=== PATIENT | male | born 1940 | race Caucasian/White ===

== ENCOUNTER 2022-08-21 13:09 | Outpatient (CLI) | payer MEDICARE, SELFPAY ==
[2022-08-21 21:45] LABS: Albumin* 4.3 g/dL (3.3-5.0); Chloride* 101 mmol/L (96-114); Sodium* 138 mmol/L (135-149)
[2022-08-21 21:47] LABS: Cholesterol* 175 mg/dL (90-199)
[2022-08-21 21:48] LABS: Alanine Aminotransferase* 13 U/L (4-50); Alkaline Phosphatase* 62 U/L (40-150); Aspartate Amino Transferase* 25 U/L (12-35); Bilirubin Total* 1.5 mg/dL (0.1-1.5); Blood Urea Nitrogen* 27 mg/dL (7-30); Carbon Dioxide* 30 mmol/L (20-32); Creatinine* 1.3 mg/dL (0.5-1.5); Estimated Glomerular Filt Rate 55 ml/min; Glucose* 102 mg/dL (60-115); HDL Cholesterol* 84 mg/dL (>=40); LDL Cholesterol Calculated 65 mg/dL (<100); Total Protein* 6.3 g/dL (6.0-8.3); Triglycerides* 130 mg/dL (40-149)
[2022-08-21 22:18] LABS: PSA Screen* 1.02 ng/mL (0.10-4.00)
== END 2022-08-21 13:10 | disposition home or self-care (01) ==
PROVIDERS: PCP Physician Assistant Medical; Visit Provider Physician Assistant Medical
DX: Z00.00 Encounter for general adult medical examination without abnormal findings (principal); E78.5 Hyperlipidemia, unspecified; I10 Essential (primary) hypertension; J44.9 Chronic obstructive pulmonary disease, unspecified; K52.9 Noninfective gastroenteritis and colitis, unspecified; Z12.5 Encounter for screening for malignant neoplasm of prostate
CPT/HCPCS: 80053; 80061; 84153

== ENCOUNTER 2023-08-28 21:45 | Outpatient (REF) | payer MEDICARE, SELFPAY ==
[2023-08-28 22:38] LABS: Chloride* 102 mmol/L (96-114)
[2023-08-28 22:39] LABS: Sodium* 139 mmol/L (135-149)
[2023-08-28 22:41] LABS: Estimated Glomerular Filt Rate 75 ml/min
[2023-08-28 22:42] LABS: Anion Gap 9 mEq/L (7-15); Blood Urea Nitrogen* 22 mg/dL (7-30); Calcium* 10.1 mg/dL (8.4-10.6); Carbon Dioxide* 28 mmol/L (20-32); Glucose* 96 mg/dL (60-115)
== END 2023-08-28 21:46 | disposition home or self-care (01) ==
LOC: NPINS 21:45
PROVIDERS: PCP Physician Assistant Medical
DX: I10 Essential (primary) hypertension (principal); E78.5 Hyperlipidemia, unspecified
CPT/HCPCS: 80048

== ENCOUNTER 2024-02-20 08:18 | Outpatient (CLI) | payer MEDICARE, SELFPAY | END 2024-02-20 08:19 | disposition home or self-care (01) | LOC: NFLDREF 02-21 07:28 | PROVIDERS: PCP Physician Assistant Medical; Referring Provider Physician Assistant Medical; Visit Provider Physician Assistant Medical | DX: E78.2 Mixed hyperlipidemia (principal) | CPT/HCPCS: 80061; 84450; 84460 ==

== ENCOUNTER 2024-03-25 14:06 | Emergency (ER) | payer MEDICARE, SELFPAY ==
[2024-03-25] VITALS (16 sets, daily range): BP systolic 148–173; BP diastolic 65–85; PULSE 64–80; RESP 36; TEMP 36.4; O2SAT 96–99; BMI 22.8
[2024-03-25] MEDS: RACEPINEPHRINE HCL 0.5 ML VIAL.NEB NEB (14:13)
--- NOTE | 2024-03-25 14:14 | XR_ITS ---
Patient: ALYSHA REGALADO Facility:?[facility] Patient ID:?[id number] Site Patient ID:?[id number]. Site :?[id number] Study:?XRay-Chest Portable-03/25/2024 2:41:36 PM Ordering Physician:?Fawad Singh Final Report: INDICATION: Concern of aspiration, tracheal foreign body? TECHNIQUE: Chest 1 views. COMPARISON: Chest x-ray January 11, 2020. FINDINGS: Cardiovascular and mediastinum: Heart size and vasculature are normal in caliber and appearance. Lungs and pleural spaces: Hyperinflated lungs and findings of COPD again noted. Right greater than left apical scarring again noted. No evidence of radiopaque foreign body. No sign of pleural effusion. No pneumothorax. Bones and soft tissues: Degenerative changes of the shoulders. IMPRESSION: No discrete evidence of radiopaque foreign body as clinically queried. Dictated by Kyaw Adler MD @ 03/25/2024 3:08:05 PM Signed by:?Kyaw Adler MD @03/25/2024 3:08:05 PM (Electronic Signature)
--- NOTE | 2024-03-25 14:17 | ED_ITS ---
HPI - General Adult General Chief complaint: Skin/Abscess/Foreign Body Stated complaint: Difficulty swallowing Time Seen by Provider: 03/25/24 14:14 History of Present Illness HPI narrative: pt was eating raw carrots and thinks he has part of them stuck in his airway. states it is better than it was. 83-year-old man presenting to the emergency department via EMS with concern of difficulty breathing. Notes a history of getting carrots hung up in his throat. Was eating carrots about 2 hours and 15 minutes ago when when some appeared to be lodged. He notes he has coughed up a lot of small pieces. Tried swallowing water and this came right back up. Has continued to have difficulty breathing and just thought he should finally get some help. Notes a history of cardiac valvular disease and needing I believe aortic valve replacement. EMS notes they were unable to visualize anything in the oropharynx or into the throat as far as they could see. Related Data Home Medications Medication Instructions Recorded Confirmed multivitamin with iron (Daily 1 tab PO QDAY 08/21/22 10/15/23 Multiple Vitamins with Iron tablet) vit C 250 mg-vit E 90 mg-zinc 40 1 tab PO BID 08/21/22 08/28/23 mg-copper 1 [id number] capsule (PreserVision AREDS-2) budesonide 3 mg 3 mg PO TID 10/30/22 10/15/23 capsule,delayed,extended release chlorthalidone 25 mg tablet 12.5 mg PO QAM 08/28/23 10/15/23 cholecalciferol (vitamin D3) 125 125 mcg PO QDAY 08/28/23 10/15/23 mcg (5,000 unit) capsule prednisone 10 mg tablet 10 mg PO DIRECTED PRN 08/28/23 10/15/23 dorzolamide 22.3 mg-timolol 6.8 ophthalmic (eye) 10/15/23 10/15/23 mg/mL eye drops Previous Rx's Medication Instructions Recorded albuterol sulfate 90 mcg/actuation 2 inh inhalation Q6-8H PRN 08/21/22 aerosol inhaler shortness of breath or wheezing #8.5 grams diltiazem HCl 180 mg 180 mg PO DAILY #90 caps 02/07/23 capsule,extended release 24 hr alprazolam 0.25 mg tablet 0.25 mg PO QDAY PRN anxiety #15 10/15/23 tabs ipratropium 0.5 mg-albuterol 3 mg 3 ml inhalation QID PRN shortness 02/19/24 (2.5 mg base)/3 mL nebulization of breath or wheezing #180 mL soln rosuvastatin 10 mg tablet 10 mg PO .Bedtime #90 tabs 02/24/24 apixaban 5 mg tablet 5 mg PO BID #180 tabs 03/06/24 beclomethasone dipropionate 40 2 inh PO BID #10.6 grams 03/19/24 mcg/actuation HFA breath activated aerosol (Qvar RediHaler) tadalafil 2.5 mg tablet 2.5 mg PO DAILY #90 tabs 03/19/24 umeclidinium 62.5 mcg/actuation 1 inh inhalation DAILY #30 ea 03/19/24 blister powder for inhalation valsartan 160 mg tablet 160 mg PO QDAY #90 tabs 03/19/24 Allergies Allergy/AdvReac Type Severity Reaction Status Date / Time doxazosin Allergy Unknown Dizziness Verified 10/15/23 11:28 Review of Systems Status of ROS: Reports: 6 or more systems reviewed and unremarkable except as noted in History and below [facility] Medical History Abdominal pain ?R10.9 - Unspecified abdominal pain (ICD-10) Small bowel obstruction ?K56.609 - Unspecified intestinal obstruction, unspecified as to partial versus complete obstruction (ICD-10) Intestinal obstruction ?K56.609 - Unspecified intestinal obstruction, unspecified as to partial versus complete obstruction (ICD-10) History of alcohol abuse ?F10.11 - Alcohol abuse, in remission (ICD-10) Surgical History History of colonoscopy ?Z98.890 - Other specified postprocedural states (ICD-10) History of radiofrequency ablation (RFA) procedure for cardiac arrhythmia ?Z98.890 - Other specified postprocedural states (ICD-10) History of endarterectomy ?Z98.890 - Other specified postprocedural states (ICD-10) History of bilateral cataract extraction ?Z98.41 - Cataract extraction status, right eye (ICD-10) ?Z98.42 - Cataract extraction status, left eye (ICD-10) Family History Unknown High blood pressure Social History Narrative: alcohol abuse, former smoker quite in 1989, What is your current living situation?: I presently have a place to live Problems where you live: no known problems In the past 12 months, utilities in danger of being shut off: no In past 12 months, lack of transportation kept you from medical appts, meetings, work, or getting things needed for daily living: no In the past 12 mos, have been you worried that your food would run out before you had money to buy more?: never true In the past 12 mos, the food you bought just didn't last and you didn't have money to buy more?: never true Smoking Status: Never smoker Do you use any of these nicotine containing products: None Second hand tobacco smoke exposure: No How often do you have a drink containing alcohol: never AUDIT-C Alcohol total score: 0 Non-prescribed substance use: denies use How often does anyone, including family, friends and others, physically hurt you : never How often does anyone, including family, friends and others, insult or talk down to you: never How often does anyone, including family, friends and others, threaten you with harm: never How often does anyone, including family, friends and others, scream or curse at you: never Little interest or pleasure in doing things: several days Feeling down, depressed, or hopeless: several days Exam Narrative: Exam Narrative: Arise with oxygen in place with Oxymizer. But setting 96-98% on room air. Significant stridor is audible. He is tachypneic and labored in breathing. Stridorous breath sounds, harsh transmitted throughout chest. Heart is in regular rate and rhythm. I can not discern any murmur though for the noise of stridor. Oropharynx is difficult to examine as he has difficulty lowering his tongue. Seems quite prone to gagging. Limited visibility. Thankfully, curiously, in answering questions able to carry on conversation without being particularly tachypneic and stridor fades dramatically. Speaking in full sentences. Then returns to stridorous breathing. Const: Vital Signs, click to edit/add: Vital Signs - 24 hr 03/25/24 14:13 03/25/24 14:16 Temperature 97.5 F L Pulse Rate [Pulse Oximeter] 79 Respiratory Rate 36 H Blood Pressure [Ri ght Upper Arm] 173/85 H Pulse Oximetry 98 99 Oxygen Delivery Me thod Room Air Documenting provider has reviewed patient's vital signs: yes Course Vital Signs Vital signs: Initial Vital Signs Temperature 97.5 F L 03/25/24 14:13 Temperature Source Temporal Artery Scan 03/25/24 14:13 Pulse Rate 77 03/25/24 14:13 Respiratory Rate 36 H 03/25/24 14:13 Blood Pressure 173/85 H 03/25/24 14:13 Blood Pressure Mean 114 H 03/25/24 14:13 Pulse Oximetry 98 03/25/24 14:13 Oxygen Delivery Method Room Air 03/25/24 14:13 Vital Signs Temperature 97.5 F L 03/25/24 14:13 Pulse Rate 77 03/25/24 14:13 Respiratory Rate 36 H 03/25/24 14:13 Blood Pressure 173/85 H 03/25/24 14:13 Pulse Oximetry 98 03/25/24 14:13 Oxygen Delivery Method Room Air 03/25/24 14:13 Temperature 97.5 F L 03/25/24 14:13 Pulse Rate 78 03/25/24 15:32 Respiratory Rate 36 H 03/25/24 14:13 Blood Pressure 148/72 H 03/25/24 15:32 Pulse Oximetry 97 03/25/24 15:32 Oxygen Delivery Method Room Air 03/25/24 14:13 Medications Administered Medications: Discontinued Medications Generic Name Dose Route Start Last Admin Trade Name Freq PRN Reason Stop Dose Admin Epinephrine 0.5 ml 03/25/24 14:14 03/25/24 14:13 Racepinephrine Hcl 0.5 Ml Vial.Neb NEB 03/25/24 14:15 0.5 ml ONCE ONE Administration Lorazepam 0.3 mg 03/25/24 14:15 03/25/24 14:23 Lorazepam 2 Mg/Ml Inj IVP 03/25/24 14:16 0.3 mg ONCE ONE Administration Medical Decision Making MDM Narrative Medical decision making narrative: There is an underlying history of anxiety I think this might be contributing. I would think some degree of residual laryngospasm. As we continue to converse he does say that he thinks it might be getting little better. I would like to give some racemic epinephrine and small dose of IV Ativan and reassess. Continue to monitor on oximetry. As he is oxygenating okay and with normal mentation I do not want intubate. I am not convinced there is something to remove. I do think that he is actually improving. The distractibility/change in stridor I think also is indication not to intervene otherwise Would be prudent to x-ray though looking for perhaps pneumothorax, pneumomediastinum or other indication of aspiration though I think it would probably be too early to see anything in this regard. We are assisted here by respiratory Chest x-ray reviewed by me is without evidence of acute abnormality. Radiology over-read as below Study:?XRay-Chest Portable-03/25/2024 2:41:36 PM Ordering Physician:?Fawad Singh Final Report: INDICATION: Concern of aspiration, tracheal foreign body? TECHNIQUE: Chest 1 views. COMPARISON: Chest x-ray January 11, 2020. FINDINGS: Cardiovascular and mediastinum: Heart size and vasculature are normal in caliber and appearance. Lungs and pleural spaces: Hyperinflated lungs and findings of COPD again noted. Right greater than left apical scarring again noted. No evidence of radiopaque foreign body. No sign of pleural effusion. No pneumothorax. Bones and soft tissues: Degenerative changes of the shoulders. IMPRESSION: No discrete evidence of radiopaque foreign body as clinically queried. Family arrived. Continued to improve over time in the ER with stable vitals. Much more relaxed on reassessment. Unsure whether swallowed or cough something up. [place] safe to go home. See patient discharge plan for further discussion Medical Records Medical records reviewed: Yes I reviewed the patient's medical records Discharge Plan Discharge Clinical Impression: Tracheal foreign body, Laryngospasm Patient Disposition: Home w/ Parent or Adult Condition: Improved Additional Instructions: Very pleased you are doing better. Return as needed. Follow-up with cardiology as scheduled. Best wishes in this surgery. Prescriptions: No Action budesonide 3 mg capsule,delayed,extend.release 3 mg PO TID multivitamin with iron [Daily Multiple Vitamins/Iron] Tablet 1 tab PO QDAY PreserVision AREDS-2 250-90-40-1 mg capsule 1 tab PO BID albuterol sulfate 90 mcg/actuation HFA aerosol inhaler 2 inh inhalation Q6-8H PRN (Reason: shortness of breath or wheezing) Qty: 8.5 3RF chlorthalidone 25 mg tablet 12.5 mg PO QAM prednisone 10 mg tablet 10 mg PO DIRECTED PRN Rx Instructions: see taper instructions cholecalciferol (vitamin D3) 125 mcg (5,000 unit) capsule 125 mcg PO QDAY dorzolamide-timolol 22.3-6.8 mg/mL drops ophthalmic (eye) Patient Comments: [NO ORIGINAL SIG] alprazolam 0.25 mg tablet 0.25 mg PO QDAY PRN (Reason: anxiety) Qty: 15 0RF diltiazem HCl 180 mg capsule,extended release 24hr 180 mg PO DAILY Qty: 90 3RF ipratropium-albuterol 0.5 mg-3 mg(2.5 mg base)/3 mL solution for nebulization 3 ml inhalation QID PRN (Reason: shortness of breath or wheezing) Qty: 180 5RF Rx Instructions: Start one neb twice a day; can increase to one neb 4x/day. rosuvastatin 10 mg tablet 10 mg PO .Bedtime Qty: 90 3RF apixaban 5 mg tablet 5 mg PO BID Qty: 180 3RF tadalafil 2.5 mg tablet 2.5 mg PO DAILY Qty: 90 0RF umeclidinium 62.5 mcg/actuation blister with device 1 inh inhalation DAILY Qty: 30 5RF Qvar RediHaler 40 mcg/actuation HFA aerosol breath activated 2 inh PO BID Qty: 10.6 5RF valsartan 160 mg tablet 160 mg PO QDAY Qty: 90 0RF Follow Up/Referrals: Robin Malik PA-C [Primary Care Provider] - Stand Alone [facility] Info Instructions
[2024-03-25] MEDS: LORazepam 2 MG/ML inj 0.3 MG IVP (14:23)
--- NOTE | 2024-03-25 14:30 | RESP.RT ---
Patient presents with audible upper airway noise. Racemic epi neb x 1 given with improvement. Patient speaking in sentences. 98%.
--- OUTSIDE RECORDS SUMMARY | 2024-03-25 14:52 | XMS_ITS | Encounter Summary ---
Author Name Unknown Organization [facility] Address [address] [place] [address] Care Team Providers Care Department Chairperson Name Role Phone Elsewhere, Pcp Primary Care Provider Unavailabl e Reason for Referral * Outpatient (Routine) - Closed Specialty Diagnoses / Procedures Referred By Contac t Referred To Contact Urology Diagnoses Benign Prostatic Hyperplasia Without Obstruction Kevin Wheeler M.D. [address] [phone] [facility] Referral ID Status Reason Start Date Expiration Date Visits Re quested Visits Authorized [id number] Closed 02/11/2019 02/11/2020 1 1 Encounter Details Date Type Department Care Team (Late st Contact Info) Description 02/11/2019 [facility] [address] [place] [address] Kevin Wheeler M.D. [address] [address] Benign Prostatic Hyperplasia Without Obstruction (Primary Dx) Social History Tobacco Use Types Packs/Day Years Used Date Smoking Tobacco: Former Sex and Gender Information Value Date Recorded Sex Assigned at Male 04/21/2019 1:19 PM CDT Gender Identity Male 04/21/2019 1:19 PM CDT Sexual Orientation Straight 04/21/2019 1: 19 PM CDT documented as of this encounter Plan of Treatment Scheduled Referrals Name Type Priority Associated Diagnoses Orde r Schedule Urology Referral Outpatient Referral Routine Benign Prostatic Hyperplasia Without Obstruction Expected: 02/11/2019 (Approximate), Expires: 02/11/2022 documented as of this encounter Visit Diagnoses Diagnosis Benign Prostatic Hyperplasia Without Obstruction- Primary documented in this encounter Additional Health Concerns Infection Onset Date Last Indicated Resolved Time COVID19 Pending 07/25/2021 07/25/2021 07/25/2021 4 :10 PM CDT COVID19 Pending 11/13/2021 11/13/2021 11/14/2021 3 :08 AM [employer] documented as of this encounter Care Teams Department Chairperson Relationship Specialty Start Date End Date Elsewhere, Pcp PCP - General Internal Medicine 12/12/22 documented as of this encounter
--- OUTSIDE RECORDS SUMMARY | 2024-03-25 14:52 | XMS_ITS | Referral Summary ---
Author Name Unknown Organization [facility] Address [address] [place] [address] Care Team Providers Care Oracle Brm Developer Name Role Phone Elsewhere, Pcp Primary Care Provider Unavailabl e Source Comments Patient records contain information from all sites at [facility]. For routine questions regarding patient records, call [phone] during business hours, M-F 8:00 AM - 5:00 PM Central Time. Record requests for emergency care only can be directed to [phone] at any time.[facility] Encounters Date Type Department Care Team Description 03/09/2024 Orders Only Department of Vascular Medicine in [place], [place] [address] [place] [address] Kyaw Sr P.A.-C. Follow Up Examination Status Post Surgery (Primary Dx); Peripheral Arterial Disease (HCC) from Last 3 Months Allergies Active Allergy Reactions Criticality Noted Date Comments Doxazosin Other (see comments) 08/21/2022 Medications Medication Sig Dispensed Refills Start Date End Date Status dilTIAZem CD (CARDIZEM CD/CARTIA XT) 180 mg 24 hr capsule Take 180 mg by mouth every morning. 06/10/2013 Active sildenafil (VIAGRA) 100 mg tablet Take by mouth as directed. Take 1 tablet approximately 1 hour before sexual activity; maximum 1 tablet per day. 06/10/2013 Active QVAR REDIHALER 40 mcg/actuation inhaler Inhale 40 mcg daily as needed. 11 10/22/2018 Active INCRUSE ELLIPTA 62.5 mcg/actuation inhaler Inhale 1 puff daily as needed. 3 08/21/2018 Active predniSONE (DELTASONE) 10 mg tablet Take 10 mg by mouth daily as needed (chest cold). [id number] mg daily as needed for chest cold. Usually takes for about 3 days.- 1 10/13/2018 Active rosuvastatin (CRESTOR) 10 mg tablet Take 10 mg by mouth at bedtime. 1 04/29/2019 Active tadalafil (CIALIS) 2.5 mg tablet Take 2.5 mg by mouth at bedtime. 1 06/30/2019 Active vitamins A,C,I-zhch-znupbg (ICAPS AREDS) 14,320 Units-226 mg-200 Units per capsule Take 1 capsule by mouth every morning. Active apixaban (ELIQUIS) 5 mg tablet Take 5 mg by mouth 2 (two) times a day. Active ipratropium-albute roL (DUONEB) 0.5-2.5 mg/3 mL nebulizer solution Inhale by nebulization 2 (two) times a day. 04/25/2021 Active albuterol 90 mcg/actuation inhaler Inhale 1 puff every 6 (six) hours as needed for wheezing or shortness of breath. 8 g 2 11/16/2021 Active budesonide (ENTOCORT EC) 3 mg 24 hr capsule 3 mg daily. 09/21/2022 Active valsartan (DIOVAN) 160 mg tablet Take 160 mg by mouth at bedtime. 10/30/2022 Active multivitamin tablet Take 1 tablet by mouth daily. Active budesonide 3 mg capsule for patient mixing Take 3 mg by mouth. 10/30/2022 A ctive cholecalciferol (VITAMIN D3) 125 mcg (5,000 Unit) tablet Take 125 mcg by mouth. 08/28/2023 Active dilTIAZem CD (Cardizem CD) 180 mg 24 hr capsule Take 180 mg by mouth. 02/07/2023 Active ipratropium-albute roL (DUONEB) 0.5-2.5 mg/3 mL nebulizer solution Inhale 3 mL. 02/08/2023 Acti ve tadalafiL (CIALIS) 2.5 mg tablet Take 2.5 mg by mouth. 05/01/2023 Active chlorthalidone (HYGROTON) 25 mg tabletIndications: Hypertension Essential Primary,Proteinuri a Take 1 tablet (25 mg total) by mouth daily. 90 tablet 1 09/13/2023 Active dorzolamide-timolo L (COSOPT) 22.3-6.8 mg/mL ophthalmic solution Administer 1 drop into both eyes 2 (two) times a day. For treatment of elevated intraocular pressure/ macular degeneration. 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 Hypertension Essential Primary 07/12/2011 Hypertension NOS 12/02/2006 Hyperlipidemia 12/02/2006 Immunizations Name Administration Dates Next Due Influenza Split 09/01/2012 SARS-COV-2 (COVID-19) - PFIZ ER (Discontinued)(12 years or older) 01/28/2021,01/07/2021 Tdap 05/02/2011 influenza high dose (65 years or older) (PF) Social History Tobacco Use Types Packs/Day Years Used Date Smoking Tobacco: Former Cigarettes 2 35 0 12/02/1955 - 12/05/1990 Smokeless Tobacco: Never Tobacco Cessation:Counseling Given: Not Answered Alcohol Use Standard Drinks/Week Comments Yes 9 (1 standard drink = 0.6 oz pur e alcohol) Humiliation, Afraid, Rape, and Kick questionnair e Answer Date Recorded Within the last year, have y ou been afraid of your partner or ex-partner? No 01/29/2023 Within the last year, have y ou been humiliated or emotionally abused in other ways by your partner or ex-partner? No Within the last year, have y ou been kicked, hit, slapped, or otherwise physically hurt by your partner or ex-partner? No 01/29/2023 Within the last year, have y ou been raped or forced to have any kind of sexual activity by your partner or ex-partner? No 01/29/2023 Social Connection and Isolation Panel [NHANES] A nswer Date Recorded In a typical week, how many times do you talk on the phone with family, friends, or neighbors? Once a week 01/29/2023 How often do you get together with friends or re latives? Once a week 01/29/2023 How often do you attend congregational or pentecostalism serv ices? Never 01/29/2023 Do you belong to any clubs o r organizations such as congregational groups, unions, fraternal or athletic groups, or school groups? No 01/29/2023 How often do you attend meet ings of the clubs or organizations you belong to? Never 01/29/2023 Are you , , di vorced, , never , or living with a partner? 01/29/2023 AUDIT-C Answer Date Recorded Q1: How often do you have a drink containing alcohol? 4 or more times a week 01/29/2023 Q2: How many drinks containi ng alcohol do you have on a typical day when you are drinking? 1 or 2 3 Q3: How often do you have si x or more drinks on one occasion? Less than monthly 01/29/2023 Overall Financial Resource Strain (CARDIA) Answe r Date Recorded How hard is it for you to pa y for the very basics like food, housing, medical care, and heating? Not hard at all 01/29/2023 [facility] [place] of Occupat ional Health - Occupational Stress Questionnaire Answer Date Recorded Do you feel stress - tense, restless, nervous, or anxious, or unable to sleep at night because your mind is troubled all the time - these days? Only a little 01/29/2023 Exercise Vital Sign Answer Date Recorde d On average, how many days pe r week do you engage in moderate to strenuous exercise (like a brisk walk)? 6 days 01/29/2023 On average, how many minutes do you engage in exercise at this level? 30 min 01/29/2023 Hunger Vital Sign Answer Date Recorded Within the past 12 months, y ou worried that your food would run out before you got the money to buy more. Never true 01/29/20 23 Within the past 12 months, t he food you bought just didn't last and you didn't have money to get more. Never true 01/29/2023 PRAPARE - Transportation Answer Date Re corded In the past 12 months, has l ack of transportation kept you from medical appointments or from getting medications? No 01/03 In the past 12 months, has l ack of transportation kept you from meetings, work, or from getting things needed for daily living? No 01/29/2023 Housing Stability Vital Sign Answer Moe e Recorded In the last 12 months, was t here a time when you were not able to pay the mortgage or rent on time? No 01/29/2023 In the last 12 months, how many places have you lived? 1 01/29/2023 In the last 12 months, was t here a time when you did not have a steady place to sleep or slept in a custodial (including now)? No 01/29/2023 Nutrition Answer Date Recorded Nutrition: EVOO Fat Source Yes 01/29 On average, how many serving s of fruits and vegetables do you eat per day (serving size is equal to 1 cup or approximately the size of a tennis ball)? 0-1 01/29/2023 Dental Answer Date Recorded Dental: Regular Dentist Yes 05/08/20 Employment Answer Date Recorded Employment status Retired 01/29/2023 Education Answer Date Recorded What is the highest level of school you have completed or the highest degree you have received? 12th grade 07/05/2019 Sex and Gender Information Value Date Recorded Sex Assigned at Male 04/21/2019 1:19 PM CDT Gender Identity Male 04/21/2019 1:19 PM CDT Sexual Orientation Straight 04/21/2019 1: 19 PM CDT Last Filed Vital Signs Vital Sign Reading Time Taken Comments Blood Pressure 182/67 09/13/2023 11:05 AM CDT Pulse 61 09/13/2023 11:05 AM CDT Temperature 36.5 ??C (97.7 ??F) 05/11/2022 1:09 PM CD T Respiratory Rate 22 07/26/2021 6:53 PM CDT Oxygen Saturation 98% 05/11/2022 1:09 PM CDT Inhaled Oxygen Concentration - - Weight 65.5 kg (144 lb 6.4 oz) 09/13/2023 11:05 AM CDT Height 163.3 cm (5' 4.29) 09/13/2023 11:05 AM C DT Body Mass Index 24.56 09/13/2023 11:05 AM CDT Plan of Treatment Not on file Medical Devices Implanted Type Area Greenhouse Specialist Device Identifier Shelf Expiration Date Model / Serial / Lot Elctrd Hd Ncl Slm 622 Str - [id number] - [id number] Implanted:Qty: 1 on 07/26/2021 by Akira Salcedo M.D. at [facility] Cochlear Implant Right: Ear Cochlear Limited 05/18/2023 [id number] / [id number] / Patch Pericardial Supple 8x14 - [employer]antes [id number] Implanted:Qty: 1 on 05/21/2012 Mesh or Patch Other/Legacy - See Implant Description Synovis Description:Device Manufactu rer - Synovis. Body Location - Other. Right. Device Status Text - [id number]. Patch Pericardial Supple 8x14 - Tal[place]antes [id number] Implanted:Qty: 1 on 09/13/2016 Mesh or Patch Other/Legacy - See Implant Description Synovis Description:Device Manufactu rer - Synovis. Body Location - Other. Vascular. Device Status Text - [id number]. Conversions - Default Historical Implant Device Implanted:09/10 (Quantity not on file) Ocular (Eye) Implant Description:Device Status Te xt - OcularImp. bilateral cataracts with implants. Procedures Procedure Name Priority Date/Time Associated Diagnosis Comments EXTI CREATININE, POCT, B Routine 03/03/2024 7:58 AM CDT EXTI SODIUM POCT Routine 03/03/2024 7:51 AM CDT COMPREHENSIVE METABOLIC PANEL, S/P Routine 09/13/2023 12:31 PM CDT Hypertension Essential Primary Proteinuria Anemia from Last 3 Months or Most Recently Relevant to Health Maintenance Results * (ABNORMAL) Comprehensive Metabolic Panel (09/13/2023 12:31 PM CDT) Potassium, S 4.0 3.6 - 5.2 mmol/L 09/13/2023 1:48 PM CDT DTL Sodium, S 140 135 - 145 mmol/L 09/13/2023 1:48 PM CDT DTL Chloride, S 101 98 - 107 mmol/L 09/13/2023 1:48 PM CDT DTL Bicarbonate, S 28 22 - 29 mmol/L 09/13/2023 1:48 PM CDT DTL Anion Gap 11 7 - 15 09/13/2023 1:48 PM CDT DTL BUN (Blood Urea Nitrogen), S 23 8 - 24 mg/dL 09/13/2023 1:48 PM CDT DTL Creatinine 1.18 0.74 - 1.35 mg/dL 09/13/2023 1:48 PM CDT DTL Estimated GFR (eGFR) 61 >=60 mL/min/BS A 09/13/2023 1:48 PM CDT DTL Comment: Estimated GFR calculated using the 2020 CKD_EPI creatinine equation. Calcium, Total, S 9.8 8.8 - 10.2 mg/dL 09/13/2023 1:48 PM CDT DTL Glucose, S 100 70 - 140 mg/dL 09/13/2023 1:48 PM CDT DTL Protein, Total, S 6.0(L) 6.3 - 7.9 g/dL 09/13/2023 1:48 PM CDT DTL Albumin, S 4.2 3.5 - 5.0 g/dL 09/13/2023 1:48 PM CDT DTL Aspartate Aminotransferase (AST), S 25 8 - 48 U/L 09/13/2023 1:48 PM CDT DTL Alkaline Phosphatase, S 55 40 - 129 U/L 09/13/2023 1:48 PM CDT DTL Alanine Aminotransferase (ALT), S 11 7 - 55 U/L 09/13/2023 1:48 PM CDT DTL Bilirubin, Total, S 0.8 0.0 - 1.2 mg/dL 09/13/2023 1:48 PM CDT DTL Blood (Blood, Venous) 09/13/2023 12:31 PM CDT 09/13/2023 12:51 PM CDT Nadine Reyes M.D. LAB BLOOD ADD -ON [facility] [address] [place] [address], [facility] DTL [facility] [address] [place] [address] from Last 3 Months or Most Recently Relevant to Health Maintenance Care Teams Oracle Brm Developer Relationship Specialty Start Date End Date Elsewhere, Pcp PCP - General Internal Medicine 12/12/22
--- OUTSIDE RECORDS SUMMARY | 2024-03-25 14:52 | XMS_ITS ---
Author Name Unknown Organization [facility] Address [address] [place] [address] Care Team Providers Care Stock Turner Name Role Phone Unavailable Unavailable Unavailable Surgery Details Not on file Complications Check Surgery Details section. Procedure Estimated Blood Loss Check Surgery Details section. Procedure Findings Check Surgery Details section. Procedure Specimens Taken Check Surgery Details section.
--- OUTSIDE RECORDS SUMMARY | 2024-03-25 14:52 | XMS_ITS | Clinical Summary ---
Author Name Unknown Organization [facility] Address [address] [place] [address] Care Team Providers Care Overlock Collar Setter Name Role Phone Elsewhere, Pcp Primary Care Provider Unavailabl e Source Comments Patient records contain information from all sites at [facility]. For routine questions regarding patient records, call [phone] during business hours, M-F 8:00 AM - 5:00 PM Central Time. Record requests for emergency care only can be directed to [phone] at any time.[facility] Allergies Active Allergy Reactions Criticality Noted Date [...] by mouth daily as needed (chest cold). Nslf42-27 mg daily as needed for chest cold. Usually takes for about 3 days.- 1 10/13/2018 Active rosuvastatin (CRESTOR) 10 mg tablet Take 10 mg by mouth at bedtime. 1 04/29/2019 Active tadalafil (CIALIS) 2.5 mg tablet Take 2.5 mg by mouth at bedtime. 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 Hypertension Essential Primary 07/12/2011 Hypertension NOS 12/02/2006 Hyperlipidemia 12/02/2006 Encounters Date Type Department Care Team Description 03/09/2024 Orders Only Department of Vascular Medicine in [place], [place] [address] [place] [address] Kyaw Sr P.A.-C. Follow Up Examination Status Post Surgery (Primary Dx); Peripheral Arterial Disease (HCC) from Last 3 Months Immunizations Name Administration Dates Next Due Influenza Split 09/01/2012 SARS-COV-2 (COVID-19) - PFIZ ER (Discontinued)(12 years or older) 01/28/2021,01/07/2021 Tdap 05/02/2011 influenza high dose (65 years or older) (PF) Family History Medical History Relation Name Comments CABG - Coronary artery bypas s graft Brother 1 michele Coronary artery disease Brother 1 michele bypa ss surgery aorta valve replacement CABG - Coronary artery bypas s graft Brother 2 maikol Coronary artery disease Brother 2 maikol by timur ass sutgery Dementia Brother 3 Fawad Stroke Brother 3 Fawad Coronary artery disease Father Pardeep from heart attack Heart attack Father Pardeep Hypertension Father Pardeep CABG - Coronary artery bypas s graft Mother gatito Coronary artery disease Mother gatito Bypa ss surgery Parkinson disease Mother gatito Relation Name Status Comments Brother 1 michele Brother 2 maikol Brother 3 Fawad Father Pardeep (Age 67) Heart gerardo ck Mother gatito (Age 83) Social History Tobacco Use Types Packs/Day Years [...] week 01/29/2023 How often do you attend scientologist or orthodox serv ices? Never 01/29/2023 Do you belong to any clubs o r organizations such as scientologist groups, unions, fraternal or athletic groups, or [...] and heating? Not hard at all 01/29/2023 [facility] [place] of Occupat ional Health - Occupational Stress [...] place to sleep or slept in a assisted (including now)? No 01/29/2023 Nutrition Answer Date [...] 09/13/2023 11:05 AM CDT Plan of Treatment Health Maintenance Due Date Last Done Comments Depression Screening (Annual PHQ-2) 12/02/2023 Fall Risk Screen (Annual) 12/02/2023 Office Visit for Blood Press ure Check / Re-check 12/14/2023 09/13/2023 COVID-19 Vaccine (7 2023-01 4 season) 2024 09/05/2023, 09/05/2023, 09/04/2022, Additional history exists Potassium Level 09/13/2024 09/13/2023, 08/02, 07/19/2023, Additional history exists Creatinine Level (Kidney Fun ction Test) 03/03/2025 03/03/2024, 09/13/2023, 08/16/2023, Additional history exists Sodium Level 03/03/2025 03/03/2024, 09/01, 08/16/2023, Additional history exists DTaP,Tdap,and Td Vaccines (3 - Td or Tdap) 09/23/2028 09/23/2018, 05/02/2011, 07/22/2007 Pneumococcal vaccine (65+ years) Completed 03/10/20, 07/22/2007 Zoster Vaccines Completed 09/11/2021, 07/2021, 10/09/2012 Influenza Vaccine Completed 09/18/2023, , 09/17/2022, Additional history exists Medical Devices Implanted Type Area Teletype Mechanic Device Identifier Shelf Expiration Date Model / Serial / Lot Elctrd Hd Ncl Slm 622 [facility] - [id number] - [id number] Implanted:Qty: 1 on 07/26/2021 by Akira Salcedo M.D. at [facility] Cochlear Implant Right: Ear Cochlear Limited 05/18/2023 [id number] / [id number] / Patch Pericardial Supple 8x14 - Talamantes [id number] Implanted:Qty: 1 on 05/21/2012 Mesh or Patch Other/Legacy - See Implant Description Synovis Description:Device Manufactu rer - Synovis. Body Location - Other. Right. Device Status Text - [id number]. Patch Pericardial Supple 8x14 - Talamantes [id number] Implanted:Qty: 1 on 09/13/2016 Mesh or Patch Other/Legacy - See Implant Description Synovis Description:Device Manufactu rer - Synovis. Body Location - Other. Vascular. Device Status Text - [id number]. Conversions - Default Historical Implant Device Implanted:09/10 [...] Comprehensive Metabolic Panel (09/13/2023 12:31 PM CDT) [facility] Potassium, S 4.0 3.6 - 5.2 mmol/L [...] Nadine Reyes M.D. LAB BLOOD ADD -ON [facility] [address] [place] [address], [place] DTL [facility] [address] [place] [address] from Last 3 Months or Most Recently Relevant to Health Maintenance Care Teams Overlock Collar Setter Relationship Specialty Start Date End Date Elsewhere, Pcp PCP - General Internal Medicine 12/12/22
--- OUTSIDE RECORDS SUMMARY | 2024-03-25 14:52 | XMS_ITS | Encounter Summary ---
Author Name Unknown Organization [facility] Address [address] [place] [address] Care Team Providers Care Adjunct Communications Faculty Member Name Role Phone Elsewhere, Pcp Primary Care Provider Unavailabl e Reason for Referral * Outpatient (Routine) - Authorized Specialty Diagnoses / Procedures Referred By Tysno adams Referred To Contact Diagnoses Follow Up Examination Status Post Surgery Peripheral Arterial Disease (HCC) Procedures US Lower Extremity Arteries Bilateral [facility] [address] [place] [phone] [facility] Referral ID Status Reason Start Date Expiration Date V isits Requested Visits Authorized [id number] Authorized 03/09/2024 03/09/2025 1 1 * Outpatient (Routine) - Authorized Specialty Diagnoses / Procedures Referred By Contac t Referred To Contact Diagnoses Follow Up Examination Status Post Surgery Peripheral Arterial Disease (HCC) Procedures Lower Extremity Arterial (JOHN) - Exercise (Claudication) [facility] [address] [place] [address] [facility] Referral ID Status Reason Start Date Expiration Date V isits Requested Visits Authorized [id number] Authorized 03/09/2024 03/09/2025 1 1 * Outpatient (Routine) - Authorized Specialty Diagnoses / Procedures Referred By Tyson adams Referred To Contact Diagnoses Follow Up Examination Status Post Surgery Peripheral Arterial Disease (HCC) Procedures ECG 12 Lead [facility] [address] [place] [phone] [facility] Referral ID Status Reason Start Date Expiration Date V isits Requested Visits Authorized [id number] Authorized 03/09/2024 03/09/2025 1 1 * Outpatient (Routine) - Authorized Specialty Diagnoses / Procedures Referred By Tyson adams Referred To Contact Vascular Medicine [facility] [address] [place] [phone] [facility] Referral ID Status Reason Start Date Expiration Date V isits Requested Visits Authorized [id number] Authorized 03/09/2024 09/08/2025 1 1 Encounter Details Date Type Department Care Team (Late st Contact Info) Description 03/09/2024 Orders Only Department of Vascular Medicine in [place], [place] [address] [place] [phone] [facility] [address] [place] [phone] Follow Up Examination Status Post Surgery (Primary Dx); Peripheral Arterial Disease (HCC) Social History Tobacco Use Types Packs/Day Years Used Date Smoking Tobacco: Former Cigarettes 2 35 0 12/02/1955 - 12/05/1990 Smokeless Tobacco: Never Alcohol Use Standard Drinks/Week Comments Yes 9 [...] week 01/29/2023 How often do you attend sikh or mu-ism serv ices? Never 01/29/2023 Do you belong to any clubs o r organizations such as sikh groups, unions, fraternal or athletic groups, or [...] and heating? Not hard at all 01/29/2023 [facility] [place] of Occupat ional Health - Occupational Stress [...] place to sleep or slept in a fdc (including now)? No 01/29/2023 Nutrition Answer Date [...] of this encounter Plan of Treatment Scheduled Orders Name Type Priority Associated Diagnoses Order Schedule ECG 12 Lead ECG Routine Follow Up Examination Status Post Surgery Peripheral Arterial Disease (HCC) Expected: 05/09/2024 (Approximate), Expires: 06/08/2025 Lower Extremity Arterial (JOHN) - Exercise (Claudication) Vascular Ultrasound Routine Follow Up Examination Status Post Surgery Peripheral Arterial Disease (HCC) Expected: 05/09/2024 (Approximate), Expires: 06/08/2025 US Lower Extremity Arteries Bilateral Imaging RAD - Routine (most inpatients and all outpatients) Follow Up Examination Status Post Surgery Peripheral Arterial Disease (HCC) Expected: 05/09/2024, Expires: 03/09/2025 Scheduled Referrals Name Type Priority Associated Diagnoses Orde r Schedule Vascular Medicine office visit (clinic) Vascular Surgery Referral Outpatient Referral Routine Expected: 05/09/2024 (Approximate), Expires: 06/08/2025 documented as of this encounter Visit Diagnoses Diagnosis Follow Up Examination Status Post Surgery- Primary Peripheral Arterial Disease (HCC) documented in this encounter Care Teams Adjunct Communications Faculty Member Relationship Specialty Start Date End Date Elsewhere, Pcp PCP - General Internal Medicine 12/12/22 documented as of this encounter
--- OUTSIDE RECORDS SUMMARY | 2024-03-25 14:53 | XMS_ITS | Continuity of Care Document ---
Author Name Unknown Organization [facility] Address [address] [place] [address] Phone Care Team Providers Care Special Programs Director Name Role Phone MIROSLAVA OD, MARCEL Unavailable Unavailable Advance Directives Directive Yes / No Effective Date File Name No Information Encounters Encounter Description Practice Location Reason(s) For Visit Diagnoses Date Provider Providers Copied on Encounter [facility], [address] [place], [place], [id number], [place] tel:[phone] [facility] No Information 6 [facility], [address], [place], [address], [place]. tel:[phone] Referring Provider: Sumit Verdugo, [facility] [place], [address]. tel:[phone] Family History Family Member Type Diagnosis Age At Onset No Information Payers Payer name Insurance type Covered constitution party ID Authoriza tion(s) Medicare Part B [place] MB [id number] [facility] [id number] Social History Type Description Quantity Date Captured Comments Sex Male Smoking Status No Information Chief Complaint And Reason For Visit No Information Reason For Referral Reason For Referral No Information History Of Present Illness Encounter Date Complaint History Of Prese nt Illness No Information Functional Status Date Functional Assessmen t No Information Instructions Date Instruction Additional Infor mation No Information Assessments Type Assessment Date No Information Patient Care Teams Name Effective Dates (start - stop) Status Members No Information
--- OUTSIDE RECORDS SUMMARY | 2024-03-25 14:53 | XMS_ITS | Clinical Summary ---
Author Name Unknown Organization [facility] Address [place], [place] [address] Care Team Providers Care Staff Mechanical Engineer Name Role Phone Hong Maliksinjared Adams PA-C Primary Care Provider [phone] Allergies Active Allergy Reactions Criticality Noted Date Comments Doxazosin Other - Describe In Comment Field Medications Medication Sig Dispensed Refills Start Date End Date Status valsartan (DIOVAN) 160 mg tablet Take 160 mg by mouth once daily. Active rosuvastatin (CRESTOR) 10 mg tablet Take 10 mg by mouth at bedtime. 12/03/2023 Active budesonide (ENTOCORT EC) 3 mg capsule Take 3 mg by mouth once daily. 09/21/2022 Active Eliquis 5 mg tablet Take 5 mg by mouth two times daily. Active albuterol-ipratrop ium (DUONEB) (2.5-0.5 mg) in 3 mL NEBULIZATION solution Inhale 1 Neb via a nebulizer two times daily. Active Incruse Ellipta 62.5 mcg/actuation inhaler Inhale 1 Puff by mouth one time if needed. 07/23/2023 Active Vit A,C,N-Jmap-Lacglg 4,296 mcg-226 mg-90 mg cap Take 1 Capsule by mouth before breakfast. Active multivitamin (MVI) tablet Take 1 Tablet by mouth once daily. Active cholecalciferol, Vitamin D3, 5,000 unit tab tablet Take 5,000 units by mouth once daily. 08/28/2023 Active carvediloL (COREG) 6.25 mg tabletIndications: Hypertension Take 1 Tablet (6.25 mg) by mouth two times daily with meals. 180 Tablet 3 01/08/2024 Active amLODIPine (NORVASC) 10 mg tabletIndications: Hypertension Take 1 Tablet (10 mg) by mouth once daily. 90 Tablet 3 01/08/2024 Active chlorthalidone (HYGROTON) 25 mg tabletIndications: Hypertension, unspecified type Take 0.5 Tablets (12.5 mg) by mouth every morning. 45 Tablet 3 03/18/2024 Active chlorthalidone (HYGROTON) 25 mg tablet Take 25 mg by mouth every morning. 4 Discontinue d(Reorder (E-cancel not sent)) chlorthalidone (HYGROTON) 25 mg tabletIndications: Hypertension, unspecified type Take 1 Tablet (25 mg) by mouth every morning. 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 ) 03/03/2024 10:00 AM CDT Office Visit [facility] [address] [facility] [address] [place] [address] Pippa Chao MD 03/03/2024 9:30 AM CDT Office Visit [facility] [address] [place] [address] Tom Klein MD CV Valve New (VALVE NEW:, CT TAVR PRIOR, NEEDS EKG,KCCQ12, 5M WALK,LETTER SENT, HJK REFERRAL DANETTE//PCP: Robin Malik PA-C//) 03/03/2024 7:07 AM CDT - 03/03/2024 11:59 PM CDT Hospital Encounter [facility] [address] [place] [address] García Samaniego MD Aortic valve stenosis, etiology of cardiac valve disease unspecified 03/03/2024 Travel 02/29/2024 Travel 02/13/2024 11:00 AM CDT Orders Only [address] Downing [address] [place] [place] [address] 1 scan: (1-Ord) ECHO TTE COMPLETE WO CONTRAST ([id number]) 02/13/2024 Telephone [facility] [address] [place] [address] García Samaniego MD Results 02/13/2024 Travel 01/15/2024 Telephone [facility] [address] [place] [address] García Samaniego MD Blood Pressure 01/13/2024 9:30 AM TRAVELING SALES EXECUTIVE Orders Only [facility] [address] [place] [address] Lab, Farm Lab 01/13/2024 Travel 01/09/2024 Travel 01/07/2024 Telephone [facility] [address] [place] [phone] García Samaniego MD Blood Pressure 12/31/2023 Telephone [facility] [address] [place] [address] García Samaniego MD Other from Last 3 Months Immunizations Name Administration Dates Next Due Influenza, IIV3 (Age >=3 years) 10/02/20 10,09/07/2009,09/07/2009,2006 Pneumococcal Poly,23-Valent (Pneumovax) 07/22/2007 Td, Preservative Free (age > = 7 Years) 07/22/2007 Family History Medical History Relation Name Comments Hypertension Father Hypertension Mother Relation Name Status Comments Father Mother Social History Tobacco Use Types Packs/Day Years Used Date Smoking Tobacco: Former Cigarettes Smokeless Tobacco: Never Tobacco Cessation:Counseling Given: Not Answered Comments:Quit in 1991 Alcohol Use Standard Drinks/Week Comments Not Currently 0 (1 standard drink = 0.6 oz pur e alcohol) 1 Kerri daily Social Connections Answer Date Recorded Frequency of Communication with Friends and Fami ly Not on file 12/17/2023 Sex and Gender Information Value Date Recorded Sex Assigned at Not on file Gender Identity Not on file Sexual Orientation Not on file Obstetrics History Last Filed Vital Signs Vital Sign Reading Time Taken Comments Blood Pressure 169/79 03/03/2024 9:14 AM CDT Pulse 80 03/03/2024 9:14 AM CDT Temperature 36.7 ??C (98.1 ??F) 06/21/2010 8:02 PM CD T Respiratory Rate 16 03/26/2011 2:15 PM CDT Oxygen Saturation 94% 03/03/2024 9:14 AM CDT Inhaled Oxygen Concentration - - Weight 65 kg (143 lb 4.8 oz) 03/03/2024 9:14 AM CDT Height 168.9 cm (5' 6.5) 03/03/2024 9:14 AM CDT Body Mass Index 22.78 03/03/2024 9:14 AM CDT Plan of Treatment Upcoming Encounters Date Type Department Care Team (Late st Contact Info) Description 03/26/2024 8:15 AM CDT Orders Only [facility] [address] [place] [address] Lab, Farm 03/30/2024 1:30 PM CDT Appointment [facility] [address] [place] [address] Yang Worthington MD [address] [address] 04/06/2024 11:00 AM CDT Orders Only [facility] [address] [phone] 04/06/2024 11:30 AM CDT Office Visit [facility] [address] [phone] 04/08/2024 12:00 PM CDT Appointment [facility] [address] [place] [address] Tom Klein MD [address] [address] Health Maintenance Due Date Last Done Comments Tdap 1951 Depression screening for age 12+ 1952 Zoster (shingles) series for age 50+ (1 of 2) 1989 Pneumococcal series for age 65+ (2 of 2 - PCV) 07/22/2008 07/22/2007 Medicare Wellness for age 65+ 08/02/2012 08/02/2011 Tetanus booster 07/22/2017 07/22/2007 Influenza for age 65+ 08/02/2024 10/02/2010 , 09/07/2009, 09/07/2009, Additional history exists BMI (ht and wt on same day) for age 18+ 03/03/2025 03/03/2024, 12/17/2023 COVID-19 vaccine series Completed 09/05/20, 09/04/2022, 04/20/2022, Additional history exists Procedures Procedure Name Priority Date/Time Associated Diagnosis Comments EKG 12 LEAD Routine 03/03/2024 9:09 AM CDT Nonrheumatic aortic valve stenosis CTA CHEST ABD PELVIS TAVR - DUAL READ Routine 03/03/2024 8:27 AM CDT Aortic valve stenosis, etiology of cardiac valve disease unspecified CREATININE,ISTAT Routine 03/03/2024 7:58 AM CDT HEMATOCRIT/HGB,ISTAT Routine 03/03/2024 7:51 AM CDT SODIUM,ISTAT Routine 03/03/2024 7:51 AM CDT ECHO TTE COMPLETE WO CONTRAST Routine 02/13/2024 11:25 AM CDT Aortic valve stenosis, etiology of cardiac valve disease unspecified ALDOSTERONE LC/MS BLOOD Routine 01/13/2024 9:17 AM TRAVELING SALES EXECUTIVE Hypertension RENIN ACTIVITY BLOOD Routine 01/13/2024 9:17 AM TRAVELING SALES EXECUTIVE Hypertension from Last 3 Months Results * EKG 12 LEAD (03/03/2024 9:09 AM CDT) Interpretation Normal sinus rhythm Normal ECG Ventricular Rate 80 BPM Atrial Rate 80 BPM P-R Interval 140 ms QRS Duration 88 ms QT 366 ms QTc 422 ms P [place] 88 degrees R [place] 44 degrees T [place] 79 degrees 03/03/2024 9:09 AM CDT 03/03/2024 7:25 PM CDT Tom Klein MD EKG ORD * CTA CHEST ABD PELVIS TAVR - DUAL READ (03/03/2024 8:27 AM CDT) Anatomical Region Laterality Modality CHEST, Abdomen, Pelvis Computed Tomography Impressions 03/05/2024 12:39 PM CDT 1. Infrarenal abdominal aortic aneurysm measuring 6 x 5.4 cm, stable in size prior exam. Type II endoleak likely arising from the JAMES. 2. Small hiatal hernia. 3. Colonic diverticulosis, no evidence for diverticulitis. Please note that all CT scans at this facility use dose modulation, iterative reconstruction, and/or weight-based dosing when appropriate to reduce radiation dose to as low as reasonably achievable. Dictated by Ming Castle MD @ 03/03/2024 10:32:27 PM (Electronic Signature) Narrative 03/05/2024 12:39 PM CDT Images from the original result were not included. STUDY: CTA CHEST, ABDOMEN, AND PELVIS TAVR Study date: 07/23/2023 Indication: 83 year-old Male with aortic valvular stenosis referred for evaluation of aortic valve annulus, thoracic aorta anatomy, and arterial access anatomy to determine candidacy for transcatheter aortic valve replacement (TAVR) procedure. STUDY PARAMETERS: Scanner: Siemens Definition Force Contrast: 100 ml of Omnipaque 350 Scan protocol: Helical with dose modulation for heart image acquisition. ?? High-pitch for chest, abdomen, and pelvis image acquisition. Radiation dose length product: 1,172 for heart and chest, abdomen, pelvis imaging. Image quality: Good FINDINGS: Aortic valve: Trileaflet. Aortic valve calcium score 2,190. Annulus: Angles: Optimal deployment projection (balloon expandable device): ALGERIAN 04??, CAU 04?? Optimal deployment projections (self expandable device): JUNE 33??, CAU 30?? Left ventricle / aortic ??angle: 42?? Access: Other findings: Coronary arteries: Severe coronary calcifications including in the dominant proximal left circumflex. Recommend invasive angiography prior to valve intervention. Left ventricle septal ECV: 26% Thoracic aorta: Moderate atheromatous disease in the descending thoracic aorta. Abdominal aorta: Diffuse abdominal aortic atherosclerosis with complete occlusion of the ostial celiac trunk and severe disease in the ostial SMA. Noncardiac findings: Please see separate radiology report. FINAL IMPRESSIONS: The aortic valve is trileaflet and heavily calcified, AoV calcium score of 2,190, consistent with severe aortic stenosis. Aortic annulus has a perimeter of 82 mm and an annular area of 529 mm??. Best fitting TAVR device options include the 26mm S3 (-4%), 29 Evolute, 29 Portico, or a 27mm Acurate. Transfemoral access appears feasible from the right though the patient has significant calcified atherosclerosis present. Agree with plans for vascular surgery consult to assess access. Left transfemoral access is not feasible given severe left external iliac stenosis. Right or left carotid access does appears feasible if needed. Severe coronary atherosclerosis including a calcified lesion in the dominant proximal left circumflex, consider invasive angiography prior to valve intervention. FOR PATIENT: Results are automatically released to your [email or web address]) account once available, in compliance with federal regulations. ?? This means that you may see your results before your provider has had a chance to review them. ??Please allow 2-3 business days for your provider to comment on the results. Ozzie Rodríguez MD Pager # [phone] [facility] 07/23/2023 For Patients: As a result of the Cures Act, medical imaging exams and procedure reports are released immediately into your electronic medical record. ??You may view this report before your referring provider. ?? If you have questions, please contact your health care provider. OVER-READ ??OVER-READ ??OVER-READ OVER-READ: DETAILED RADIOLOGY EXTRACARDIAC OVER-READ OF CARDIAC CT 03/03/2024 COMPARISON: ??CT angiogram abdomen and pelvis 01/08/2003, 01/03/2022. TECHNIQUE: ??Please see cardiology report for technical information. ?? Arterial phase CT angiogram of the chest, abdomen and pelvis were obtained. No enteric contrast was administered and therefore the study has decreased sensitivity for detection of bowel pathology. 3D and/or MIP angiographic reconstructions were performed on a separate independent workstation with concurrent supervision of the image post processing in order to further delineate the angiographic anatomy for accurate interpretation. Contrast: 100 mL of Omnipaque 350 intravenous contrast was injected uneventfully prior to image acquisition. Radiation Dose Estimate (Total Exam DLP): 2032.8 mGy-cm. This exam is being performed in conjunction with the services provided by the [facility] ([facility]). CLINICAL HISTORY: ??Abdominal aortic aneurysm status post repair. FINDINGS: ?? CT Angiography Findings: Thoracic Aorta: Scattered atherosclerotic disease. No aneurysm or dissection. Great Vessels: Patent. Abdominal aorta: Infrarenal abdominal aortic aneurysm measuring 6 x 5.4 cm, grossly stable in size to prior exam. Redemonstration of type II endoleak likely from the JAMES. Celiac axis: Patent. Superior mesenteric artery: Patent. Inferior mesenteric artery: Patent. LEFT Renal: Patent. RIGHT Renal: Patent. RIGHT lower extremity : Common iliac artery: Patent. Internal iliac artery: Patent. External iliac artery: Patent. Common femoral artery: Patent. LEFT lower extremity: Common iliac artery: Patent. Internal iliac artery: Patent. External iliac artery: Patent. Common femoral artery: Patent. Visceral Findings: Chest: Thyroid: Unremarkable Lungs: No focal airspace opacities or pleural effusions. Mild bibasilar dependent atelectatic changes. Heart/Pericardium: Heart normal in size. Coronary artery atherosclerotic calcifications. No pericardial effusion. Lymph Nodes: No significant axillary, mediastinal, or hilar lymphadenopathy. Abdomen/Pelvis: Liver: Stable subcentimeter hypoattenuating lesion in segment 4 of the left hepatic lobe, too small to accurately characterize but favoring benign etiology given stability. Gallbladder: Unremarkable. Spleen: Unremarkable. Adrenal glands: Unremarkable. Kidneys: Unremarkable. Pancreas: Unremarkable. Lymph nodes: No retroperitoneal, mesenteric, inguinal, or pelvic adenopathy by CT criteria. Bowel: Small hiatal hernia. No bowel obstruction. Mild colonic diverticulosis, no evidence for diverticulitis. Urinary bladder: Limited evaluation due to underdistention. No gross pathology. Reproductive structures: Unremarkable for patient`s age. No abdominal/pelvis ascites or free intraperitoneal air. Musculoskeletal: Postsurgical changes in the bilateral inguinal regions. Visualized osseous structures demonstrate diffuse degenerative changes. García Samaniego MD CT * (ABNORMAL) CREATININE,ISTAT (03/03/2024 7:58 AM CDT) CREATININE, POCT 1.40(H) 0.57 - 1.11 mg/dL 03/03/2024 12:41 PM CDT [facility] Comment:Caution: Patients ta jossie Hydroxyurea have falsely increased iStat Creatinine results. Verify creatinine results ordering a Creatinine (05067.2) eGFR 50(L) >90 mL/min/1.7 3m2 03/03/2024 12:41 PM CDT [facility] Comment:As of 2022, eG FR is calculated by the CKD-EPI creatinine equation without race adjustment. eGFR can be influenced by muscle mass, exercise, and diet. The reported eGFR is an estimation only and is only applicable if the renal function is stable. Blood BLOOD SPECIMEN / Unknown 03/03/2024 7:58 AM CDT 03/03/2024 12:41 PM CDT Tom Klein MD CHEMISTRY [facility] [address] [place] [address], * SODIUM,ISTAT (03/03/2024 7:51 AM CDT) Pathologist [facility] SODIUM, POCT 139 135 - 145 mmol/L 03/03/2024 12:41 PM CDT [facility] Blood BLOOD SPECIMEN / Unknown 03/03/2024 7:51 AM CDT 03/03/2024 12:41 PM CDT Tom Klein MD LABORATORY Performing Organization Address [facility] Co de Phone Number [facility] [address] * (ABNORMAL) HEMATOCRIT/HGB,ISTAT (03/03/2024 7:51 AM CDT) Pathologist [facility] HEMATOCRIT, POCT 39.0 37.0 - 53.0 % 03/03/2024 12:41 PM CDT [facility] HEMOGLOBIN, POCT 13.3(L) 13.5 - 17.5 g/dL 03/03/2024 12:41 PM CDT [facility] Blood BLOOD SPECIMEN / Unknown 03/03/2024 7:51 AM CDT 03/03/2024 12:41 PM CDT Tom Klein MD CHEMISTRY Performing Organization Address [facility] Co de Phone Number [facility] [address] * ECHO TTE COMPLETE WO CONTRAST (02/13/2024 11:25 AM CDT) Pathologist [facility] AORTIC VALVE MEAN PG 38 mmHg EJECTION FRACTION 66 % PEAK TR VELOCITY 2.8 m/s LVEDD 4.3 cm Anatomical Region Laterality Modality Ultrasound 02/13/2024 10:4 6 AM CDT Narrative 02/13/2024 1:00 PM CDT ECHOCARDIOGRAM CUATE REGALADO ? Accession#: ?? [id number] : ?1940 83 years Study Date: ?? 02/13/2024 10:46:42 AM Gender: M ?BP: ? 0/0 mmHg Height: 168.00 cm ?BSA: ?1.75 m? ? ? Weight: 66.00 kg ? Tech: ? RMB ? Referring MD: GARCÍA SAMANIEGO Site: ? [facility] Reading Location: [facility] Patient Location: Procedure: 2D, Color Doppler and Spectral Doppler. Indication for study: Cardiac Rhythm: Regular.Study quality: Final Impressions: 1. Normal left ventricular size, mildly increased wall thickness, normal global systolic function, calculated EF of 66 %. 2. The aortic valve is trileaflet and sclerotic, severe stenosis and mild regurgitation. The aortic valve peak velocity is 4.0 m/s, the peak gradient is 65 mmHg, and the mean gradient is 38 mmHg. The aortic valve area is 0.70 cm? ? ? with a dimensionless index of 0.20. The stroke volume index is 42.8 ml/m? ? ?. 3. Mildly enlarged left atrium. 4. The mitral valve is sclerotic, mild mitral regurgitation. Mean gradient 2-3 mmHg at 55 bpm. Chamber Sizes and Function Normal left ventricular size, mildly increased wall thickness, normal global systolic function, calculated EF of 66 %. Left atrial size is mildly enlarged. Right ventricular cavity size is normal, global systolic RV function is normal. RV wall thickness is normal. The right atrium is normal. Right atrial volume index is 26 ml/m? ? ?. Right atrial area is 17 cm? ? ?. The pulmonary artery is not well visualized. The sinus of Valsalva is normal sized. The ascending aorta is normal sized. Valves, RV Pressures and Diastolic Function The aortic valve is trileaflet and sclerotic, severe stenosis and mild regurgitation. The mitral valve is sclerotic, mild mitral regurgitation. Mitral annular calcification is present. Spectral Doppler shows Grade 2 pattern of LV diastolic filling. The tricuspid valve is normal in structure. Tricuspid regurgitation is mild regurgitation. The tricuspid regurgitant velocity is 2.8 m/s, the estimated right ventricular systolic pressure is 31 mmHg plus right atrial pressure. The pulmonic valve is normal. No pulmonary regurgitation. Masses, Effusion, Shunts There is no pericardial effusion. The inferior vena cava is normal sized, respiratory size variation greater than 50%. No left to right shunting was detected by limited color flow Doppler interrogation of the interatrial septum. MEASUREMENTS AND CALCULATIONS 2-D Measurements and LV Function: LVID (d) 4.3 cm Planimetered EF 66 % LVID (s) 3.0 cm LV FS% (2D) ? 30 % IVS (d) ??1.3 cm LVOT diameter ?? 2.1 cm LVPW (d) 1.0 cm HR ?68 bpm Ao Sinus 3.6 cm LA Vol index ?33 ml/m2 Asc Ao ?? 3.7 cm RA Vol index ?26 ml/m2 LA ? 4.1 cm RA area ? 17 cm?RV Max 4C (d) ?? 4.5 cm Diastology: Mitral ?Tissue Doppler E Peak 1.4 m/s ??e', Septum ? 0.05 m/s A Peak 0.8 m/s ??e', Lateral ?0.07 m/s E/A ?1.8 ?E/e' Average ?? 23.77 DT ? 283 msec Aortic Valve: Vmax ? 4.0 m/s ??REESE (V) ?? 0.72 cm? ? ? VTI ?1.08 m ?? REESE (I) ?? 0.70 cm? ? ? LVOT V max 0.8 m/s ??Max PG ?65 mmHg LVOT VTI ?? 0.22 m ?? Mean PG ?? 38 mmHg SV ? 75 ml ?Dim Index 0.20 SV index ?? 43 ml/m? ? ? CO ?5.1 l/min ?CI ?2.9 l/min/m? ? ? Mitral Valve: MVA ? 2.7 cm? ? ? MV P 1/2 ??82 msec MV Mean G 3 mmHg MV VTI ?0.47 m Tricuspid Valve and estimated PA pressures: TR Vmax 2.8 m/s TAPSE 1.9 cm TR maxG 31 mmHg . This study was interpreted by an [facility] accredited facility. ??Final ?? Procedure Note Ingrid Simons MD - 02/13/2024 ECHOCARDIOGRAM CUATE REGALADO : 1940 83 years Study Date: 02/13/2024 10:46:42 AM Gender: M BP: 0/0 mmHg Height: 168.00 cm BSA: 1.75 m? ? ? Weight: 66.00 kg Tech: [facility] Referring MD: GARCÍA SAMANIEGO Site: [facility] Reading Location: [facility] Patient Location: Procedure: 2D, Color Doppler and Spectral Doppler. Indication for study: Cardiac Rhythm: Regular.Study quality: Final Impressions: 1. Normal left ventricular size, mildly increased wall thickness, normalglobal systolic function, calculated EF of 66 %. 2. The aortic valve is trileaflet and sclerotic, severe stenosis and mildregurgitation. The aortic valve peak velocity is 4.0 m/s, the peakgradient is 65 mmHg, and the mean gradient is 38 mmHg. The aortic valvearea is 0.70 cm? ? ? with a dimensionless index of 0.20. The stroke volumeindex is 42.8 ml/m? ? ?. 3. Mildly enlarged left atrium. 4. The mitral valve is sclerotic, mild mitral regurgitation. Meangradient 2-3 mmHg at 55 bpm. Chamber Sizes and Function Normal left ventricular size, mildly increased wall thickness, normalglobal systolic function, calculated EF of 66 %. Left atrial size ismildly enlarged. Right ventricular cavity size is normal, global systolicRV function is normal. RV wall thickness is normal. The right atrium isnormal. Right atrial volume index is 26 ml/m? ? ?. Right atrial area is 17cm? ? ?. The pulmonary artery is not well visualized. The sinus of Valsalvais normal sized. The ascending aorta is normal sized. Valves, RV Pressures and Diastolic Function The aortic valve is trileaflet and sclerotic, severe stenosis and mildregurgitation. The mitral valve is sclerotic, mild mitral regurgitation.Mitral annular calcification is present. Spectral Doppler shows Grade 2pattern of LV diastolic filling. The tricuspid valve is normal instructure. Tricuspid regurgitation is mild regurgitation. The tricuspidregurgitant velocity is 2.8 m/s, the estimated right ventricular systolicpressure is 31 mmHg plus right atrial pressure. The pulmonic valve isnormal. No pulmonary regurgitation. Masses, Effusion, Shunts There is no pericardial effusion. The inferior vena cava is normal sized,respiratory size variation greater than 50%. No left to right shunting wasdetected by limited color flow Doppler interrogation of the interatrialseptum. MEASUREMENTS AND CALCULATIONS 2-D Measurements and LV Function: LVID (d) 4.3 cm Planimetered EF 66 % LVID (s) 3.0 cm LV FS% (2D) 30 % IVS (d) 1.3 cm LVOT diameter 2.1 cm LVPW (d) 1.0 cm HR 68 bpm Ao Sinus 3.6 cm LA Vol index 33 ml/m2 Asc Ao 3.7 cm RA Vol index 26 ml/m2 LA 4.1 cm RA area 17 cm? ? ? RV Max 4C (d) 4.5 cm Diastology: Mitral Tissue Doppler E Peak 1.4 m/s e', Septum 0.05 m/s A Peak 0.8 m/s e', Lateral 0.07 m/s E/A 1.8 E/e' Average 23.77 DT 283 msec Aortic Valve: Vmax 4.0 m/s REESE (V) 0.72 cm? ? ? VTI 1.08 m REESE (I) 0.70 cm? ? ? LVOT V max 0.8 m/s Max PG 65 mmHg LVOT VTI 0.22 m Mean PG 38 mmHg SV 75 ml Dim Index 0.20 SV index 43 ml/m? ? ? CO 5.1 l/min CI 2.9 l/min/m? ? ? Mitral Valve: MVA 2.7 cm? ? ? MV P 1/2 82 msec MV Mean G 3 mmHg MV VTI 0.47 m Tricuspid Valve and estimated PA pressures: TR Vmax 2.8 m/s TAPSE 1.9 cm TR maxG 31 mmHg . This study was interpreted by an IAC accredited facility. Final García Samaniego MD ECHO ORD * ALDOSTERONE LC/MS BLOOD (01/13/2024 9:17 AM TRAVELING SALES EXECUTIVE) Pathologist [facility] Aldosterone 5.7 0.0 - 30.0 ng/dL 01/18/2024 10:10 AM [facility] ([facility]) Blood BLOOD SPECIMEN / Unknown Venipuncture / Unknown 01/13/2024 9:17 AM TRAVELING SALES EXECUTIVE 01/13/2024 9:17 AM [facility] Narrative [facility] - 01/18/2024 10:10 AM [facility] Test(s) 593432-Jkryxgvxozx was developed and its performance characteristics determined by [facility]. It has not been cleared or approved by the Food and Drug Administration. Performed at: ??01 - [address] ??[id number] Case Work Aide: Roberto Newman MD, Phone: ??[phone] García Samaniego MD SEND OUTS [facility] ([facility]) [address] [place] [address], * RENIN ACTIVITY BLOOD (01/13/2024 9:17 AM TRAVELING SALES EXECUTIVE) Renin Activity 1.051 0.167 - 5.380 ng/mL/hr 01/23/2024 7:08 PM TRAVELING SALES EXECUTIVE [facility] ([facility]) Blood BLOOD SPECIMEN / Unknown Venipuncture / Unknown 01/13/2024 9:17 AM TRAVELING SALES EXECUTIVE 01/13/2024 9:17 AM TRAVELING SALES EXECUTIVE Narrative [facility] ([facility] - 01/23/2024 7:08 PM TRAVELING SALES EXECUTIVE Test(s) 500031-Pkozs Activity, Plasma was developed and its performance characteristics determined by [facility]. It has not been cleared or approved by the Food and Drug Administration. Performed at: ??01 - [facility] [address] [place] [address] ??[id number] Case Work Aide: Roberto Newman MD, Phone: ??[phone] García Samaniego MD SEND OUTS [facility]) [address] [place] [address], from Last 3 Months Care Teams Staff Mechanical Engineer Relationship Specialty Start Date End Date Robin Malik PA-C [address] [place] [id number] PCP - General Physician Crane Operator 03/03/24
--- OUTSIDE RECORDS SUMMARY | 2024-03-25 14:53 | XMS_ITS | Continuity of Care Document ---
Author Name Unknown Organization [facility] Address [address] [place] [address] Phone Care Team Providers Care Liaison Planner Name Role Phone [facility] Unavailable Unavailable Advance Directives Directive Yes / No Effective Date File Name No Information Encounters Encounter Description Practice Location Reason(s) For Visit Diagnoses Date Provider Providers Copied on Encounter [facility], [address], [place], [place], [id number] tel:[phone] [facility] No Information [facility]. [address], [place], [place], [id number], . tel:[phone] Referring Provider: PHYLLIS Verdugo, [address] Floor, [place], [address] . tel:[phone] Family History Family Member Type Diagnosis Age At Onset No Information Payers Payer name Insurance type Covered alliance party ID Authoriza tion(s) ASC Medicare Part B [place] [id number] ASC [facility] [id number] Social History Type Description Quantity Date Captured [...]
== END 2024-03-25 15:36 | disposition home or self-care (01) ==
PROVIDERS: Emergency Provider Family Medicine; PCP Physician Assistant Medical
DX: J38.5 Laryngeal spasm (principal); T17.428A Food in trachea causing other injury, initial encounter
CPT/HCPCS: 71045; 94640; 94761; 96374; 99284; J2060

== ENCOUNTER 2024-04-14 13:05 | Outpatient (CLI) | payer MEDICARE, SELFPAY ==
--- OUTSIDE RECORDS SUMMARY | 2024-04-15 06:59 | XMS_ITS | Referral Summary ---
Author Name Unknown Organization [facility] Address [address] [place] [address] Care Team Providers Care Dental Manager Name Role Phone Elsewhere, Pcp Primary Care Provider Unavailabl e Source Comments Patient records contain information from all sites at [facility]. For routine questions regarding patient records, call [phone] during business hours, M-F 8:00 AM - 5:00 PM Central Time. Record requests for emergency care only can be directed to [phone] at any time.[facility] Encounters Date Type Department Care Team Description 03/09/2024 Orders Only Department of Vascular Medicine in [place], [place] [address] [place] [address] Kyaw Sr P.A.-C. Follow Up Examination Status [...] by mouth daily as needed (chest cold). [id number] mg daily as needed for chest cold. Usually takes for about 3 days.- 1 10/13/2018 Active rosuvastatin (CRESTOR) 10 mg tablet Take 10 mg by mouth at bedtime. 1 04/29/2019 Active tadalafil (CIALIS) 2.5 mg tablet Take 2.5 mg by mouth at bedtime. 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 [...] week 01/29/2023 How often do you attend baptist or samaritan serv ices? Never 01/29/2023 Do you belong to any clubs o r organizations such as baptist groups, unions, fraternal or athletic groups, or [...] and heating? Not hard at all 01/29/2023 [facility] of Occupat ional Health - Occupational Stress [...] on file Medical Devices Implanted Type Area Communication Technician Device Identifier Shelf Expiration Date Model / Serial / Lot Elctrd Hd Ncl Slm 622 Str - [id number] - [id number] Implanted:Qty: 1 on 07/26/2021 by Akira Salcedo M.D. 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 Body Location - Other. Right. Device Status Text - [id number]. Patch Pericardial Supple 8x14 - [place] [id number] Implanted:Qty: 1 on 09/13/2016 Mesh or Patch Other/Legacy - See Implant Description Synovis Description:Device Manufactu rer - Synovis. Body Location - Other. Vascular. Device Status Text - [id number]. Conversions - Default Historical Implant Device Implanted:09/10 (Quantity not on file) Ocular (Eye) Implant Description:Device Status Te xt - OcularImp. bilateral cataracts with implants. Procedures Procedure Name Priority Date/Time Associated Diagnosis Comments EXTI BASIC METABOLIC PANEL, S/P Routine 04/09/2024 6:24 AM CDT from Last 3 Months or Most Recently Relevant to Health Maintenance Care Teams Dental Manager Relationship Specialty Start Date End Date Elsewhere, Pcp PCP - General Internal Medicine 12/12/22
--- OUTSIDE RECORDS SUMMARY | 2024-04-15 06:59 | XMS_ITS | Clinical Summary ---
Author Name Unknown Organization [facility] Address [address] [place] [address] Care Team Providers Care Piece Presser Name Role Phone Elsewhere, Pcp Primary Care Provider Unavailabl e Source Comments Patient records contain information from all sites at [facility]. For routine questions regarding patient records, call [phone] during business hours, M-F 8:00 AM - 5:00 PM Central Time. Record requests for emergency care only can be directed to [phone] at any time.[facility] Allergies [...] by mouth daily as needed (chest cold). [id number] mg daily as needed for chest cold. Usually takes for about 3 days.- 1 10/13/2018 Active rosuvastatin (CRESTOR) 10 mg tablet Take 10 mg by mouth at bedtime. 1 04/29/2019 Active tadalafil (CIALIS) 2.5 mg tablet Take 2.5 mg by mouth at bedtime. 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 Hypertension Essential Primary 07/12/2011 Hypertension NOS 12/02/2006 Hyperlipidemia 12/02/2006 Encounters Date Type Department Care Team Description 03/09/2024 Orders Only Department of Vascular Medicine in [place], [place] [address] [place] [address] Kyaw Sr P.A.-C. Follow Up Examination Status [...] week 01/29/2023 How often do you attend congregation or denominational serv ices? Never 01/29/2023 Do you belong to any clubs o r organizations such as congregation groups, unions, fraternal or athletic groups, or [...] and heating? Not hard at all 01/29/2023 [facility] [place] of Occupat ional Health - Occupational Stress [...] place to sleep or slept in a prison (including now)? No 01/29/2023 Nutrition Answer Date [...] 2024 09/05/2023, 09/05/2023, 09/04/2022, Additional history exists Creatinine Level (Kidney Fun ction Test) 04/09/2025 04/09/2024, 04/06/2024, 03/30/2024, Additional history exists Potassium Level 04/09/2025 04/09/2024, 05/0 05/2024, 03/30/2024, Additional history exists Sodium Level 04/09/2025 04/09/2024, 05/0 05/2024, 03/30/2024, Additional history exists DTaP,Tdap,and Td Vaccines (3 - Td or Tdap) 09/23/2028 09/23/2018, 05/02/2011, 07/22/2007 Pneumococcal vaccine (65+ years) Completed 03/10/20 15, 07/22/2007 Zoster Vaccines Completed 09/11/2021, 07/2021, 10/09/2012 Influenza Vaccine Completed 09/18/2023, , 09/17/2022, Additional history exists Medical Devices Implanted Type Area Heading Repairer Device Identifier Shelf Expiration Date Model / Serial / Lot Elctrd Hd Ncl Slm 622 [facility] - [id number] - [id number] Implanted:Qty: 1 on 07/26/2021 by Akira Salcedo M.D. at 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 Body Location - Other. Right. Device Status Text - [id number]. Patch Pericardial Supple 8x14 - [place] [id number] Implanted:Qty: 1 on 09/13/2016 Mesh or Patch Other/Legacy - See Implant Description Synovis Description:Device Manufactu rer - Synovis. Body Location - Other. Vascular. Device Status Text - [id number]. Conversions - Default Historical Implant Device Implanted:09/10 (Quantity not on file) Ocular (Eye) Implant Description:Device Status Te xt - OcularImp. bilateral cataracts with implants. Procedures Procedure Name Priority Date/Time Associated Diagnosis Comments EXTI BASIC METABOLIC PANEL, S/P Routine 04/09/2024 6:24 AM CDT from Last 3 Months or Most Recently Relevant to Health Maintenance Care Teams Piece Presser Relationship Specialty Start Date End Date Elsewhere, Pcp PCP - General Internal Medicine 12/12/22
--- OUTSIDE RECORDS SUMMARY | 2024-04-15 06:59 | XMS_ITS | Continuity of Care Document ---
Author Name Unknown Organization [facility] Address [address] [address] [place] [address] Phone Care Team Providers Care Manifold Operator Name Role Phone Cindi Hugo Unavailable Unavailabl e Allergies, Adverse Reactions, Alerts Substance Reaction Status Criticality No Known Allergies Active No Inform ation Medications Medication Instructions Dosage Effective Dates (start - stop) Status Comments amlodipine 10 mg tablet take 1 tablet by oral route every day 10 MG - Active carvedilol 6.25 mg tablet take 1 tablet by oral route 2 times every day with food 6.25 MG - Active chlorthalidone 25 mg tablet take 1 tablet by oral route every day 25 MG - Active valsartan 160 mg tablet take 1 Tablet by Oral route every day 1 Tablet - Active rosuvastatin 10 mg tablet take 1 tablet by oral route every day 10 MG - Active Vision tablet 4,296 mcg-324ce67cy cap - Active budesonide DR - ER 3 mg capsule,delayed,extende d release take 1 capsule daily for microscopic colitis. - Active Eliquis 5 mg tablet take 1 tablet by oral route 2 times every day 5 MG - Active Inhaler unknown (0.5 mg/3 mg per 3 ml) take by neb 1 time a day - Active Inhaler unknown (40 mcg) Ovvar redihaler take by inhalation once a day - Active tadalafil 2.5 mg tablet take 1 tablet by oral route every day 2.5 MG - Active CENTRUM SILVER (unknown strength) take 1 Tablet by Oral route every day Not Available - Active Herbal Medications/Supplements unknown Focus select as directed - Active budesonide DR - ER 3 mg capsule,delayed,extende d release take 1 capsule daily for microscopic colitis. - No Longer Active Generic please. rosuvastatin 20 mg tablet take 1 tablet by oral route every day 20 MG - No Longer Active hydrochlorothiazide 25 mg tablet take 1 tablet by oral route every day 25 MG - No Longer Active diltiazem ER 180 mg tablet,extended release 24 hr take 1 tablet by oral route every day 180 MG No Longer Active valsartan 80 mg tablet take 1 tablet by oral route every day 80 MG No Longer Active Incruse Ellipta 62.5 mcg/actuation powder for inhalation inhale 1 puff by inhalation route every day at the same time each day 62.5 MCG - No Longer Active azithromycin 250 mg tablet take 1 tablet by oral route every day for 1 day then 1 tablet (250 mg) by oral route once daily for 4 days 250 MG No Longer Active prednisone 10 mg tablet take 1 tablet by oral route every day 10 MG No Longer Active Procedures Procedure Date Offic/outpt E&m Estab Low-mod 4 Offic/outpt E&m Estab Low-mod 3 Offic/outpt E&m New Mod-hi Colorectal Ca Scrn Not Hi Risk 07 Advance Directives Directive Yes / No Effective Date File Name No Information Encounters Encounter Description Practice Location Reason(s) For Visit Diagnoses Date Provider Providers Copied on Encounter Offic/outpt E&m Estab Low-mod [facility], [address] [address], [place], [place], [id number], [place] tel:[phone] [facility] GI Symptoms or Concerns (chief complaint) Collagenous colitis Mar- 4 Hunter Puente. [address] [facility], [facility] [place], [id number] , [place]. tel: [phone] Robin Malik PAC. [phone] erring Provider: Referral Self, USE FOR SELF REFERRALS. [facility], [address] [address], [place], [place], [address], [place] tel:[phone] [facility] No Information 4 Grzegorz Begum. [address] [facility], [facility] [address], [facility] [place], [place], [id number] , [place]. tel: [phone] Offic/outpt E&m Estab Low-mod [facility], [address] [address], [place], [place], [address], [place] tel:[phone] [facility] GI Symptoms or Concerns (chief complaint) Collagenous colitis 3 Hunter Puente. [address] [facility], [facility] [place], [place], [address] , [place]. tel:[phone] Robin BANDA. tel:[phone] erring Provider: Robin BANDA, [address], [place], [address]. tel:[phone] [facility], [address] [address], [place], [address], [place] tel:[phone] [facility] No Information 0 3 Grzegorz Begum. [address] [facility], [facility] [place], [id number] , [place]. tel:[phone] Offic/outpt E&m New Mod-hi [facility], [address] [address], [place], [address], [place] tel:[phone] [facility] GI Symptoms or Concerns (chief complaint) Collagenous colitis Sep- 2 Hunter Puente. [address] [facility], [facility] [address], [place], [place], [address] , [place]. tel:[phone] Robin BANDA. tel:[phone] erring Provider: Robin BANDA, [address], [place], [address]. tel:[phone] [facility], [address] [address], [facility] [place], [address], [place] tel:[phone] [facility] No Information Aug- 2 Grzegorz Begum. [address] [facility], [facility] [address], [place], [place], [address] , [place]. tel: [phone] [facility], [address] [address], [facility] [place], [address], [place] tel:[phone] [facility] Colon Cancer ScreeningDiverti culosis Of Colon Aug-0 200 7 Go MD Chen. [address] [facility], [facility] [address], [place], [place], [address] , [place]. tel:[phone] Referring Provider: Dilma Hahn MD J, [address], [place], [address]. tel:[phone] Family History Family Member Type Diagnosis Age At Onset Father Problem (finding) Asthma Immunizations Vaccine Date Status Comments Respiratory syncytial virus (RSV), vaccine, recombinant, protein subunit RSV prefusion F, adjuvant reconstituted, 0.5 mL, preservative free administered Note: [facility] bi-direct ional interface ; Source: Other Registry influenza, seasonal vaccine, quadrivalent, adjuvanted, 0.5mL dose, preservative free administered Note: [facility] bi-di rectional interface ; Source: Other Registry SARS-COV-2 (COVID-19) vaccin e, mRNA, spike protein, LNP, preservative free, 50 mcg/0.5 mL dose administered Note: [facility] bi-direct ional interface ; Source: Other Registry influenza, seasonal vaccine, quadrivalent, adjuvanted, 0.5mL dose, preservative free administered Note: [facility] bi-di rectional interface ; Source: Other Registry influenza, seasonal vaccine, quadrivalent, adjuvanted, .5mL dose, preservative free administered Note: [facility] bi-di rectional interface ; Source: Other Registry SARS-COV-2 (COVID-19) vaccin e, mRNA, spike protein, LNP, bivalent, preservative free, 30 mcg/0.3 mL dose, sarah-sucrose formulation administered Note: [facility] bi-direct ional interface ; Source: Other Registry SARS-COV-2 (COVID-19) vaccin e, mRNA, spike protein, LNP, bivalent booster, preservative free, 30 mcg/0.3 mL dose, sarah-sucrose formulation administered Note: [facility] bi-d irectional interface ; Source: Other Registry SARS-COV-2 (COVID-19) vaccin e, mRNA, spike protein, LNP, preservative free, 30 mcg/0.3mL dose administered Note: [facility] bi-direct ional interface ; Source: Other Registry influenza, seasonal vaccine, quadrivalent, adjuvanted, 0.5mL dose, preservative free administered Note: [facility] bi-di rectional interface ; Source: Other Registry influenza, seasonal vaccine, quadrivalent, adjuvanted, .5mL dose, preservative free administered Note: [facility] bi-di rectional interface ; Source: Other Registry zoster vaccine recombinant administered N ote: [facility] bi-directional interface ; Source: Other Registry SARS-COV-2 (COVID-19) vaccin e, mRNA, spike protein, LNP, preservative free, 30 mcg/0.3mL dose administered Note: [facility] bi-direct ional interface ; Source: Other Registry zoster vaccine recombinant administered N ote: [facility] bi-directional interface ; Source: Other Registry SARS-COV-2 (COVID-19) vaccin e, mRNA, spike protein, LNP, preservative free, 30 mcg/0.3mL dose administered Note: [facility] bi-direct ional interface ; Source: Other Registry SARS-COV-2 (COVID-19) vaccin e, mRNA, spike protein, LNP, preservative free, 30 mcg/0.3mL dose administered Note: [facility] bi-direct ional interface ; Source: Other Registry influenza, high-dose seasona l, quadrivalent, 0.7mL dose, preservative free administered Note: [facility] bi-direct ional interface ; Source: Other Registry influenza, high-dose seasona l, quadrivalent, .7mL dose, preservative free administered Note: [facility] bi-direct ional interface ; Source: Other Registry influenza, high dose seasona l, preservative-free administered Note: [facility] bi-direct ional interface ; Source: Other Registry tetanus toxoid, reduced diphtheria toxoid, and acellular pertussis vaccine, adsorbed administered Note: [facility] b i-directional interface ; Source: Other Registry influenza, high dose seasona l, preservative-free administered Note: [facility] bi-direct ional interface ; Source: Other Registry influenza, high dose seasona l, preservative-free administered Note: [facility] bi-direct ional interface ; Source: Other Registry influenza, high dose seasona l, preservative-free administered Note: [facility] bi-direct ional interface ; Source: Other Registry influenza, high dose seasona l, preservative-free administered Note: [facility] bi-direct ional interface ; Source: Other Registry Prevnar 13 administered Note: [facility] bi-d irectional interface ; Source: Other Registry Influenza, seasonal, injectable administe red Note: [facility] bi- directional interface ; Source: Other Registry zoster vaccine, live administered Note: [facility] bi-directional interface ; Source: Other Registry influenza virus vaccine, unspecified formulation administered Note: [facility] bi-di rectional interface ; Source: Other Registry Influenza, seasonal, injectable administe red Note: [facility] bi- directional interface ; Source: Other Registry tetanus toxoid, reduced diphtheria toxoid, and acellular pertussis vaccine, adsorbed administered Note: [facility] b i-directional interface ; Source: Other Registry Influenza, seasonal, injectable administe red Note: [facility] bi- directional interface ; Source: Other Registry tetanus and diphtheria toxoi ds, adsorbed, preservative free, for adult use (5 Lf of tetanus toxoid and 2 Lf of diphtheria toxoid) administered Note: [facility] bi-direct ional interface ; Source: Other Registry Pneumovax 23 administered Note: [facility] bi-d irectional interface ; Source: Other Registry Payers Payer name Insurance type Covered democrat ID Authorcorby sexton(s) [employer] Medicare MB [id number] Social History Type Description Quantity Date Captured Comments Alcohol Use Details Unknown Caffeine Use Details Unknown Tobacco Use Status No Information Smoking Status undefined Sex Male Vital Signs Date / Time: Height Weight BMI Pulse Rate Blood Pressure Temperature Respiratory Rate Body Surface Area Head Circumference Head Circ. Percentile Wt./Chandana. Percentile BMI percentile Pulse Ox Inhaled Ox 10:14 AM 66.00 in 65.771 kg (145.00 lbs) 23.4 0 kg/m eter (2) 59 /min 136/63 mm[Hg] Chief Complaint And Reason For Visit From encounter dated '03/18/2024 10:45'. GI Symptoms or Concerns (chief complaint). Description: Cuate Chavis is a pleasant 83-year-old male with collagenous colitis on budesonide 3 milligrams daily who presents in follow-up. Patient is seen annually for his collagenous colitis. Fortunately he is responded to budesonide but has been unable to taper off the medication. Last year he found good success staying on 3 milligrams of budesonide daily. He finds that on this dose he can have 1-2 bowel movements per day that are typically formed. He does not experience urgency. This allows him to go about his daily activities without anxietyor concern that he is going to be incontinent. There was no black or bloody stool. No abdominal pain. He does not use NSAIDs. He does have a long history of cigarette smoking in his currently being managed for COPD. He has since quit smoking cigarettes. The patient does have atrial fibrillation andis on Eliquis. He does have severe aortic regurgitation with plans for a possible TAVR through [facility] in April. Reason For Referral Reason For Referral No Information Plan Of Treatment Date Type Action Status Referral Ordered: follow-up visit with Cindi BANDA 1 Year Appointment date/timeframe: 1 Year ordered Referral Ordered: follow-up visit with Cindi BANDA 6 Months Appointment date/timeframe: 6 Months ordered History Of Present Illness Encounter Date Complaint History Of Prese nt Illness GI Symptoms or Concerns Cuate Chavis is a pleasant 83-year-old male with collagenous colitis on budesonide 3 milligrams daily who presents in follow-up. Patient is seen annually for his collagenous colitis. Fortunately he is responded to budesonide but has been unable to taper off the medication. Last year he found good success staying on 3 milligrams of budesonide daily. He finds that on this dose he can have 1-2 bowel movements per day that are typically formed. He does not experience urgency. This allows him to go about his daily activities without anxiety or concern that he is going to be incontinent. There was no black or bloody stool. No abdominal pain. He does not use NSAIDs. He does have a long history of cigarette smoking in his currently being managed for COPD. He has since quit smoking cigarettes. The patient does have atrial fibrillation and is on Eliquis. He does have severe aortic regurgitation with plans for a possible TAVR through [facility] in April. GI Symptoms or Concerns This is an 82-year-old male with atrial fibrillation status post ablation on Eliquis, COPD, hypertension, and collagenous colitis presents in follow-up. Patient was last seen in September of 2022. At that time he did require budesonide taper to get his diarrhea under control. He did try to come off the medication completely, unfortunately he developed frequent diarrhea again. He started taking just 1 capsule daily and found that this got his bowel movements back to baseline. He has 1-2 bowel movements per day. These are typically formed bowel movements that occur in the mornings. There is no urgency and no frequency. There is no abdominal pain. There is no hematochezia. Patient does not use NSAIDs. He uses rosuvastatin for his cholesterol. The patient does follow with cardiology at the [facility] and has frequent appointments there. He does have a long history of cigarette smoking. He is since quit but does have COPD. GI Symptoms or Concerns This is a pleasant 81-year-old male with medical history of atrial fibrillation on Eliquis, COPD, hypertension who presents for evaluation of diarrhea in the setting of previous diagnosis of collagenous colitis in January 2021. Patient reports he is struggled with frequent diarrhea for at least the past 20-30 years. He reports having at least 3 watery loose bowel movements per day. There can be some urgency. He has no abdominal pain. There is no black or bloody stool. He underwent colonoscopy at an outside hospital on January 12, 2021. I only have the pathology report available which revealed collagenous colitis on random colon biopsy. Initially the patient's provider sent in budesonide but it was a 9 milligram formula which was extremely expensive. His insurance so the prednisone would be an alternative. He has been on 10 milligrams of prednisone fairly regularly for the past year. While on the prednisone he has 1 formed bowel movement per day and can eat his normal di Functional Status Date Functional Assessmen t No Information Instructions Date Instruction Additional Infor winifred Microscopic colitis Related to C ollagenous colitis Microscopic colitis Related to C ollagenous colitis Microscopic colitis Related to C ollagenous colitis Assessments Type Assessment Date assessment Collagenous colitis impression This is a pleasant [age]-year-old male with collagenous colitis currently controlled on 3 milligrams of budesonide daily. We did have long discussion with he and his Gail about the risks, benefits, and potential side effects of budesonide. We discussed potentially going to [id number] dosing. Given his upcoming surgery we will continue the daily dosage until the patient has recovered. We can reassess in 1 year's time if [id number] dose is possible. In the past he is tried Imodium but is hesitant as he thinks this could have led to a bowel obstruction years ago. Patient expresses understanding with the plan for continued budesonide 3 milligrams daily. He is grateful that the medication works and will keep me informed if anything else changes. Patient Care Teams Name Effective Dates (start - stop) Status Members No Information
--- OUTSIDE RECORDS SUMMARY | 2024-04-15 06:59 | XMS_ITS | Continuity of Care Document ---
Author Name Unknown Organization [facility] Address [address] [place] [address] Phone Care Team Providers Care Steel Die Press Set Up Operator Name Role Phone [facility] Unavailable Unavailable Advance Directives Directive Yes / No Effective Date File Name No Information Encounters Encounter Description Practice Location Reason(s) For Visit Diagnoses Date Provider Providers Copied on Encounter [facility], [address], [place], [place], [id number] tel:[phone] [facility] No Information [facility]. [address], [place], [place], [id number], . tel:[phone] Referring Provider: PHYLLIS Verdugo, [address], [place], [address] . tel:[phone] Family History Family Member Type Diagnosis Age At Onset No Information Payers Payer name Insurance type Covered libertarian ID Authoriza tion(s) ASC Medicare Part B MB [id number] [facility] [id number] Social History Type Description Quantity Date Captured [...]
--- OUTSIDE RECORDS SUMMARY | 2024-04-15 06:59 | XMS_ITS | Encounter Summary ---
Author Name Unknown Organization [facility] Address [address] [place] [address] Care Team Providers Care Affiliate Manager Name Role Phone Elsewhere, Pcp Primary Care Provider Unavailabl e Reason for Referral * Outpatient (Routine) - Authorized Specialty Diagnoses / Procedures Referred By Tyson t Referred To Contact Diagnoses Follow Up Examination Status Post Surgery Peripheral Arterial Disease (HCC) Procedures US Lower Extremity Arteries Bilateral [facility] [address] [place] [phone] [facility] Referral ID Status Reason Start Date Expiration Date V isits Requested Visits Authorized [id number] Authorized 03/09/2024 03/09/2025 1 1 * Outpatient (Routine) - Authorized Specialty Diagnoses / Procedures Referred By Contac t Referred To Contact Diagnoses Follow Up Examination Status Post Surgery Peripheral Arterial Disease (HCC) Procedures Lower Extremity Arterial (JOHN) - Exercise (Claudication) [facility]aw Sr P.A[facility] [address] [place] [address] [facility] Referral ID Status Reason Start Date Expiration Date V isits Requested Visits Authorized [id number] Authorized 03/09/2024 03/09/2025 1 1 * Outpatient (Routine) - Authorized Specialty Diagnoses / Procedures Referred By Tyson adams Referred To Contact Diagnoses Follow Up Examination Status Post Surgery Peripheral Arterial Disease (HCC) Procedures ECG 12 Lead Kyaw Sr P.A[facility] [address] [place] [phone] [facility] Referral ID Status Reason Start Date Expiration Date V isits Requested Visits Authorized [id number] Authorized 03/09/2024 03/09/2025 1 1 * Outpatient (Routine) - Authorized Specialty Diagnoses / Procedures Referred By Tyosn adams Referred To Contact Vascular Medicine [facility] [address] [place] [phone] [facility] Referral ID Status Reason Start Date Expiration Date V isits Requested Visits Authorized [id number] Authorized 03/09/2024 09/08/2025 1 1 Encounter Details Date Type Department Care Team (Late st Contact Info) Description 03/09/2024 Orders Only Department of Vascular Medicine in [place], [place] [address] [place] [phone] [facility] [address] [place] [phone] Follow Up Examination Status Post Surgery (Primary [...] week 01/29/2023 How often do you attend alevism or yarsanism serv ices? Never 01/29/2023 Do you belong to any clubs o r organizations such as alevism groups, unions, fraternal or athletic groups, or [...] and heating? Not hard at all 01/29/2023 [facility] Occup[facility] ional Health - Occupational Stress [...] place to sleep or slept in a jail (including now)? No 01/29/2023 Nutrition Answer Date [...] (HCC) documented in this encounter Care Teams Affiliate Manager Relationship Specialty Start Date End Date Elsewhere, Pcp PCP - General Internal Medicine 12/12/22 documented as of this encounter
--- OUTSIDE RECORDS SUMMARY | 2024-04-15 06:59 | XMS_ITS ---
Author Name Unknown Organization [facility] Address [address] [place] [address] Care Team Providers Care Director Of Agronomy Name Role Phone Unavailable Unavailable Unavailable Surgery Details Not on file Complications Check Surgery Details section. Procedure Estimated Blood Loss Check Surgery Details section. Procedure Findings Check Surgery Details section. Procedure Specimens Taken Check Surgery Details section.
--- OUTSIDE RECORDS SUMMARY | 2024-04-15 06:59 | XMS_ITS | Clinical Summary ---
Author Name Unknown Organization [facility] Address [place], [place] [address] Care Team Providers Care Cell Inspector Name Role Phone Cris Malik PA-C Primary Care Provider Allergies Active Allergy Reactions Criticality Noted Date Comments Doxazosin Other - Describe In Comment Field Medications Medication Sig Dispensed Refills Start Date End Date Status valsartan (DIOVAN) 160 mg tablet Take 160 mg by mouth at bedtime. Active rosuvastatin (CRESTOR) 10 mg tablet Take 10 mg by mouth at bedtime. 4 Active budesonide (ENTOCORT EC) 3 mg capsule Take 3 mg by mouth at bedtime. 2 Active albuterol-ipratr opium (DUONEB) (2.5-0.5 mg) in 3 mL NEBULIZATION solution Inhale 1 Neb via a nebulizer two times daily. Active Incruse Ellipta 62.5 mcg/actuation inhaler Inhale 1 Puff by mouth once daily if needed. 3 Active Vit A,C,J-Nvmx-Vgffv r 4,296 mcg-226 mg-90 mg cap Take 1 Capsule by mouth at bedtime. Active multivitamin (MVI) tablet Take 1 Tablet by mouth once daily. Active cholecalciferol, Vitamin D3, 5,000 unit tab tablet Take 5,000 units by mouth once daily. 3 Active carvediloL (COREG) 6.25 mg tabletIndication s:Hypertension Take 1 Tablet (6.25 mg) by mouth two times daily with meals. 180 Tablet 3 4 Active amLODIPine (NORVASC) 10 mg tabletIndication s:Hypertension Take 1 Tablet (10 mg) by mouth once daily. 90 Tablet 3 4 Active chlorthalidone (HYGROTON) 25 mg tabletIndication s:Hypertension, unspecified type Take 0.5 Tablets (12.5 mg) by mouth every morning. 45 Tablet 3 4 Active Qvar RediHaler 40 mcg/actuation HFA inhaler Inhale 2 Puffs by mouth. Twice daily when unable to use Duoneb 4 Active acetaminophen (Tylenol Extra Strength) 500 mg tablet Take 500 mg by mouth 3 times daily if needed. Max acetaminophen dose: 4000mg in 24 hrs. Active artificial tears, peg 400 0.4%-propylene glycol 0.3%, (Systane, propylene glycoL,) ophthalmic Place 1-2 Drops into both eyes every morning. Active Eliquis 5 mg tabletIndication s:Paroxysmal A-fib (HC) Take 1 Tablet (5 mg) by mouth two times daily. Do NOT take until 03/31/24 4 Active chlorthalidone (HYGROTON) 25 mg tablet Take 25 mg by mouth every morning. 024 Discontinued(Re order (E-cancel not sent)) Eliquis 5 mg tablet Take 5 mg by mouth two times daily. 024 Discontinued chlorthalidone (HYGROTON) 25 mg tabletIndication s:Hypertension, unspecified type Take 1 Tablet (25 mg) by mouth every morning. 90 Tablet 3 4 024 Discontinued(Re order (E-cancel not sent)) Active Problems Problem Noted Date Diagnosed Date Severe aortic stenosis 03/30/2024 ASHD (arteriosclerotic heart disease) 03/30/2024 Overview: - 07/23/23 CT TAVR: Coronary arteries: Severe coronary calcifications including in the dominant proximal left circumflex. Paroxysmal A-fib 03/30/2024 Overview: - pAF s/p PVI 2019 on anticoagulation COPD (chronic obstructive pulmonary disease) Overview: - Moderate/Severe COPD and former smoker, FEV1 58% predicted in 2020 Renal insufficiency 03/30/2024 PVD (peripheral vascular disease) 08/02/2011 Overview: - Severe peripheral arterial disease s/p bilateral endartectomy of bilateral common femoral arteries - 2010-atherectomy and INFORMATION AND DATA ARCHITECT ANALYST of right superficial femoral artery, INFORMATION AND DATA ARCHITECT ANALYST of right popliteal artery - 2011-endarterectomy with patch angioplasty of the right common femoral, superficial and deep femoral arteries - 2015-endarterectomy and patch angioplasty of the left common femoral, superficial femoral, and profunda arteries - Right SFA occlusion diagnosed 05/2023 being monitored by vascular/vascular surgery Vitamin D deficiency 08/01/2010 HTN (hypertension) 07/31/2010 Sensorineural hearing loss, 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 Resolved Problems Problem Noted Date Diagnosed Date Resolved Date Unspecified essential hypertension 08/12/2008 08/12/2008 Encounters Date Type Department Care Team Description 04/08/2024 10:16 AM CDT - 04/09/2024 11:00 AM CDT Hospital Encounter [facility] [address] [place] [address] Tom Klein MD Severe aortic stenosis (Primary Dx) Discharge Disposition: Home Self Care 04/08/2024 Travel 04/07/2024 Orders Only [facility] [address] [place] [address] Tanner Garcia NP <No scans attached> 04/06/2024 11:30 AM CDT Office Visit [facility] [address] [facility] [address] [place] [phone] Tanner Garcia NP CV Valve Est (VALVE EST:PRE-OP TAVR, LABS PRIOR, NEEDS EKG,KCCQ12, 5MWALK,LETTER SENT, HJK//PCP: Cris Malik PA-C/) 04/06/2024 11:00 AM CDT Orders Only [facility] [address] [place] [address] Lab 04/06/2024 Travel 04/03/2024 Travel 04/01/2024 Telephone [facility] [place] [address] [facility] [address] [place] [address] García Samaniego MD Blood Pressure 03/30/2024 10:36 AM CDT - 03/30/2024 6:30 PM CDT Hospital Encounter [facility] [address] [place] [address] Akilah Silvestre MD Severe aortic stenosis (Primary Dx); Cardiovascular symptoms; ASHD (arteriosclerotic heart disease); PVD (peripheral vascular disease) (HC); Paroxysmal A-fib (HC); Chronic obstructive pulmonary disease, unspecified COPD type (HC) Discharge Disposition: Home Self Care 03/30/2024 Travel 03/26/2024 8:15 AM CDT Orders Only [facility] [address] [facility] [place] [address] Lab, Farm Lab 03/26/2024 Travel 03/17/2024 Telephone [facility] [address] [place] [address] García Samaniego MD Medication Management 03/16/[address] [place] [address] [place] [address] Tom Klein MD Surgery Scheduled (TAVR coordination. ) 03/03/2024 12:00 PM CDT - 03/03/2024 11:59 PM CDT Hospital Encounter [facility] [address] [place] [address] García Samaniego MD Aortic stenosis 03/03/2024 10:00 AM CDT Office Visit [facility] [address] [place] [phone] Pippa Chao MD 03/03/2024 9:30 AM CDT Office Visit [facility] [address] [facility] [address] [place] [phone] Tom Klein MD CV Valve New (VALVE NEW:, CT TAVR PRIOR, NEEDS EKG,KCCQ12, 5M WALK,LETTER SENT, HJK REFERRAL DANETTE//PCP: Cris Malik PA-C//) 03/03/2024 7:07 AM CDT - 03/03/2024 11:59 PM CDT Hospital Encounter [facility] [address] [place] [address] García Samaniego MD Aortic valve stenosis, etiology of cardiac valve disease unspecified 03/03/2024 Travel 02/29/2024 Travel 02/13/2024 11:00 AM CDT Orders Only [address] [place] [address] 1 scan: (1-Ord) ECHO TTE COMPLETE WO CONTRAST ([id number]) 02/13/2024 Telephone [facility] - [address] [place] [phone] García Samaniego MD Results 02/13/2024 Travel from Last 3 Months Immunizations Name Administration [...] in 1991 Alcohol Use Standard Drinks/Week Comments Yes 0 (1 standard drink = 0.6 oz [...] Sign Reading Time Taken Comments Blood Pressure 162/85 04/09/2024 8:00 AM CDT Pulse 66 04/09/2024 8:00 AM CDT Temperature 36.9 ??C (98.5 ??F) 04/09/2024 8:00 AM CD T Respiratory Rate 18 04/09/2024 8:00 AM CDT Oxygen Saturation 96% 04/09/2024 8:00 AM CDT Inhaled Oxygen Concentration - - Weight 62.5 kg (137 lb 11.2 oz) 04/09/2024 4:00 AM CDT Height 167.6 cm (5' 6) 04/08/2024 11:0 0 AM CDT Body Mass Index 22.23 04/08/2024 11:00 AM CDT Plan of Treatment Upcoming Encounters Date Type Department Care Team (Late st Contact Info) Description 05/06/2024 11:00 AM CDT Orders Only [facility] [address] [facility] [address] [place] [address] 05/29/2024 9:30 AM CDT Orders Only [facility] [address] [phone] 05/29/2024 10:00 AM CDT Appointment [facility] [address] [place] [address] 05/29/2024 1:00 PM CDT Office Visit [facility] [address] [facility] [address] [place] [phone] Jacek Gupta MBBS [address] [address] Health Maintenance Due Date Last Done Comments [...] wt on same day) for age 18+ 04/06/2025 04/06/2024, 03/03/2024, 12/17/2023 COVID-19 vaccine series Completed 09/05/20 23, 09/04/2022, 04/20/2022, Additional history exists Procedures Procedure Name Priority Date/Time Associated Diagnosis Comments SCAN-CARDIAC STRIP 04/09/2024 7: 06 AM CDT BASIC METABOLIC PANEL Early AM 04/09/2024 6:24 AM CDT CBC W PLT NO DIFF Early AM 04/09/2024 6:2 4 AM CDT EKG 12 LEAD Early AM 04/09/2024 5:36 AM CDT SCAN-CARDIAC STRIP 04/09/2024 3: 37 AM CDT SCAN-CARDIAC STRIP 04/08/2024 6: 07 PM CDT ECHO TTE LIMITED WO CONTRAST W COLOR W LTD DOPPLER Routine 04/08/2024 4:59 PM CDT EKG 12 LEAD KISHA 04/08/2024 4:50 PM CDT HCHG ACTIVATED CLOTTING TM CV Timed 04/08/2024 3:18 PM CDT HCHG ACTIVATED CLOTTING TM CV Timed 04/08/2024 3:17 PM CDT CVL TAVR Routine 04/08/2024 2:55 PM CDT RBC W/O TYPE & SCREEN STAT 04/08/2024 2:14 PM CDT RED BLOOD CELLS EA UNIT STAT 04/08/2024 2:13 PM CDT RED BLOOD CELLS EA UNIT STAT 04/08/2024 2:13 PM CDT TYPE & SCREEN Preop 04/08/2024 12:14 PM CDT GLUCOSE, FASTING Preop 04/08/2024 12:1 4 PM CDT MISSING PERSONS INVESTIGATOR QUESTION TEST Routine 04/06/2024 10:38 AM CDT Pre-op testing TYPE & SCREEN Routine 04/06/2024 10:38 AM CDT Pre-op testing CBC W PLT NO DIFF Routine 04/06/2024 10: 38 AM CDT Pre-op testing BASIC METABOLIC PANEL Routine 04/06/2024 10:38 AM CDT Pre-op testing ALBUMIN Routine 04/06/2024 10:38 AM CDT Pre-op testing EKG 12 LEAD Routine 04/06/2024 10:01 AM CDT Severe aortic stenosis CTA CHEST ABD PELVIS TAVR - DUAL READ KISHA 04/03/2024 1:42 PM CDT Aortic stenosis CVL CORONARY ANGIOGRAM POSS PCI Routine 03/30/2024 2:21 PM CDT Cardiovascular symptoms EKG 12 LEAD KISHA 03/30/2024 12:38 PM CDT CBC W PLT NO DIFF KISHA 03/30/2024 11: 41 AM CDT BASIC METABOLIC PANEL KISHA 03/30/2024 11:41 AM CDT BASIC METABOLIC PANEL Routine 03/26/2024 8:15 AM CDT Hypertension, unspecified type EKG 12 LEAD Routine 03/03/2024 9:09 AM CDT Nonrheumatic aortic valve stenosis CTA CHEST ABD PELVIS TAVR - DUAL READ Routine 03/03/2024 8:27 AM CDT Aortic valve stenosis, etiology of cardiac valve disease unspecified CREATININE,ISTAT Routine 03/03/2024 7:58 AM CDT HEMATOCRIT/HGB,ISTA T Routine 03/03/2024 7:51 AM CDT SODIUM,ISTAT Routine 03/03/2024 7:51 AM CDT ECHO TTE COMPLETE WO CONTRAST Routine 02/13/2024 11:25 AM CDT Aortic valve stenosis, etiology of cardiac valve disease unspecified from Last 3 Months Results * SCAN-CARDIAC STRIP (04/09/2024 7:06 AM CDT) Scanner OTHER * (ABNORMAL) CBC with Platelets no Differential (04/09/2024 6:24 AM CDT) Only the most recent of3 resultswithin the time period is included. WHITE BLOOD COUNT 8.1 4.5 - 11.0 thou/cu mm 04/09/2024 6:56 AM CDT [facility] RED BLOOD COUNT 3.94(L) 4.30 - 5.90 mil/cu mm 04/09/2024 6:56 AM CDT [facility] HEMOGLOBIN 12.5(L) 13.5 - 17.5 g/dL 04/09/2024 6:56 AM CDT [facility] HEMATOCRIT 37.6 37.0 - 53.0 % 04/09/2024 6:56 AM CDT [facility] MCV 95 80 - 100 fL 04/09/2024 6:56 AM CDT [facility] MCH 31.7 26.0 - 34.0 pg 04/09/2024 6:56 AM CDT [facility] MCHC 33.2 32.0 - 36.0 g/dL 04/09/2024 6:56 AM CDT [facility] RDW 12.5 11.5 - 15.5 % 04/09/2024 6:56 AM CDT [facility] PLATELET COUNT 226 140 - 440 thou/cu mm 04/09/2024 6:56 AM CDT [facility] MPV 10.6 6.5 - 11.0 fL 04/09/2024 6:56 AM CDT [facility] NRBC 0.0 % 04/09/2024 6:56 AM CDT [facility] ABS NRBC 0.0 thou /cu mm 04/09/2024 6:56 AM CDT [facility] Blood BLOOD SPECIMEN / Unknown Venipuncture / Unknown 04/09/2024 6:24 AM CDT 04/09/2024 6:42 AM CDT Jacek WILLINGHAM HEMATOLOGY [facility] [address] [place] [id number], * (ABNORMAL) Basic Metabolic Panel (04/09/2024 6:24 AM CDT) Only the most recent of4 resultswithin the time period is included. SODIUM 139 136 - 145 mmol/L 04/09/2024 7:12 AM CDT [facility] POTASSIUM 4.1 3.5 - 5.1 mmol/L 04/09/2024 7:12 AM T [facility] CHLORIDE 103 98 - 107 mmol/L 04/09/2024 7:12 AM CDT [facility] CO2,TOTAL 25 22 - 29 mmol/L 04/09/2024 7:12 AM CDT [facility] ANION GAP 11 5 - 18 04/09/2024 7:12 AM CDT [facility] GLUCOSE 95 70 - 99 mg/dL 04/09/2024 7:12 AM CDT [facility] CALCIUM 9.3 8.8 - 10.2 mg/dL 04/09/2024 7:12 AM CDT [facility] BUN 22 8 - 23 mg/dL 04/09/2024 7:12 AM CDT [facility] CREATININE 1.23(H) 0.70 - 1.20 mg/dL 04/09/2024 7:12 AM CDT [facility] BUN/CREAT RATIO 18 10 - 20 7:12 AM CDT [facility] eGFR 58(L) >90 mL/min/1.7 3m2 04/09/2024 7:12 AM CDT [facility] Comment:As of 2022, eG FR is calculated by the CKD-EPI creatinine equation without race adjustment. ??eGFR can be influenced by muscle mass, exercise, and diet. ??The reported eGFR is an estimation only and is only applicable if the renal function is stable. Blood BLOOD SPECIMEN / Unknown Venipuncture / Unknown 04/09/2024 6:24 AM CDT 04/09/2024 6:42 AM CDT Jacek WILLINGHAM CHEMISTRY Performing Organization Address City/[facility] Co de Phone Number [facility] [address] [place] [address], * EKG - In AM (04/09/2024 5:36 AM CDT) Only the most recent of4 resultswithin the time period is included. Interpretation Sinus bradycardia Otherwise normal ECG When compared with ECG of 08-APR-2024 16:50, (Unconfirmed) No significant change was found BEYOND NOW Ventricular Rate 59 BPM BEYOND NOW Atrial Rate 59 BPM BEYOND NOW P-R Interval 146 ms BEYOND NOW QRS Duration 88 ms BEYOND NOW QT 400 ms BEYOND NOW QTc 396 ms BEYOND NOW P [place] 80 degrees BEYOND NOW R [place] 20 degrees BEYOND NOW T [place] 58 degrees BEYOND NOW 04/09/2024 5:36 AM CDT 04/09/2024 12:18 PM CDT Jacek WILLINGHAM EKG ORD Performing Organization Address [facility] Co de Phone Number BEYOND NOW [place], [place] * SCAN-CARDIAC STRIP (04/09/2024 3:37 AM CDT) Scanner OTHER * SCAN-CARDIAC STRIP (04/08/2024 6:07 PM CDT) Scanner OTHER * ECHO TTE LIMITED WO CONTRAST W COLOR W LTD DOPPLER (04/08/2024 4:59 PM CDT) AORTIC VALVE MEAN PG 4 mmHg EJECTION FRACTION 65 - 70% Anatomical Region Laterality Modality Ultrasound 04/08/2024 4:21 PM CDT Narrative 04/08/2024 5:06 PM CDT ECHOCARDIOGRAM CUATE REGALADO ? Accession#: ?? [id number] : ?1940 83 years Study Date: ?? 04/08/2024 4:21:28 PM Gender: M ?BP: ? 149/69 mmHg Height: 167.00 cm ?BSA: ?1.71 m? ? ? Weight: 63.00 kg ? Tech: ? SPK ? Referring MD: TANNER GARCIA Site: ? [facility] Reading Location: [facility] IP Patient Location: Procedure: Limited 2D , Color Doppler and Limited Spectral Doppler. Indication for study: S/p TAVR Cardiac Rhythm: Regular.Study quality: Fair. Final Impressions: Limited Echocardiogram performed 1. Normal LV size, normal global systolic function with an estimated EF of 65 - 70%. 2. The aortic valve is a normal functioning 26 mm Zamora Jagdish S3, no stenosis and no regurgitation. EOA 2.6cm2, MG 4mmHg. 3. No pericardial effusion. Chamber Sizes and Function Normal left ventricular size, not well visualized wall thickness, normal global systolic function with an estimated EF of 65 - 70%. Valves, RV Pressures and Diastolic Function The aortic valve is a normal functioning 26 mm Zamora Jagdish S3, no stenosis and no regurgitation. The mitral valve is sclerotic, no mitral regurgitation. Masses, Effusion, Shunts There is no pericardial effusion. MEASUREMENTS AND CALCULATIONS 2-D Measurements and LV Function: LVOT diameter 2.0 cm HR ?60 bpm Aortic Valve: Vmax ? 1.4 m/s ??REESE (V) ?? 2.47 cm? ? ? VTI ?0.30 m ?? REESE (I) ?? 2.58 cm? ? ? LVOT V max 1.1 m/s ??Max PG ?8 mmHg LVOT VTI ?? 0.23 m ?? Mean PG ?? 4 mmHg SV ? 76 ml ?Dim Index 0.79 SV index ?? 45 ml/m? ? ? CO ?4.6 l/min ?CI ?2.7 l/min/m? ? ? . This study was interpreted by an [facility] accredited facility. ??Final ?? Procedure Note Jm Gaines MD - 04/08/2024 ECHOCARDIOGRAM CUATE REGALADO : 1940 83 years Study Date: 04/08/2024 4:21:28 PM Gender: M BP: 149/69 mmHg Height: 167.00 cm BSA: 1.71 m? ? ? Weight: 63.00 kg Tech: ANHK Referring MD: TANNER GARCIA Site: [facility] Reading Location: [employer] [facility] Patient Location: Procedure: Limited 2D , Color Doppler and Limited Spectral Doppler. Indication for study: S/p TAVR Cardiac Rhythm: Regular.Study quality: Fair. Final Impressions: Limited Echocardiogram performed 1. Normal LV size, normal global systolic function with an estimated EFof 65 - 70%. 2. The aortic valve is a normal functioning 26 mm Zamora Jagdish S3, nostenosis and no regurgitation. EOA 2.6cm2, MG 4mmHg. 3. No pericardial effusion. Chamber Sizes and Function Normal left ventricular size, not well visualized wall thickness, normalglobal systolic function with an estimated EF of 65 - 70%. Valves, RV Pressures and Diastolic Function The aortic valve is a normal functioning 26 mm Zamora Jagdish S3, nostenosis and no regurgitation. The mitral valve is sclerotic, no mitralregurgitation. Masses, Effusion, Shunts There is no pericardial effusion. MEASUREMENTS AND CALCULATIONS 2-D Measurements and LV Function: LVOT diameter 2.0 cm HR 60 bpm Aortic Valve: Vmax 1.4 m/s REESE (V) 2.47 cm? ? ? VTI 0.30 m REESE (I) 2.58 cm? ? ? LVOT V max 1.1 m/s Max PG 8 mmHg LVOT VTI 0.23 m Mean PG 4 mmHg SV 76 ml Dim Index 0.79 SV index 45 ml/m? ? ? CO 4.6 l/min CI 2.7 l/min/m? ? ? . This study was interpreted by an [facility] accredited facility. Final Tanner Garcia SEISMOLOGY TECHNICAL OFFICER ECHO ORD * (ABNORMAL) ACTIVATED CLOTTING TIME AUE227 ACT (04/08/2024 3:18 PM CDT) Only the most recent of2 resultswithin the time period is included. ACTIVATED CLOTTING TIME, POCT 253(H) 74 - 125 sec 04/08/2024 4:00 PM CDT [facility] [employer] [facility] Blood BLOOD SPECIMEN / Unknown 04/08/2024 3:18 PM CDT 04/08/2024 4:00 PM CDT Tom Klein MD [facility] [address] [place] [address], [place] * CVL TAVR (04/08/2024 2:55 PM CDT) Anatomical Region Laterality Modality X-Ray Angiograph y, X-Ray Angiography 04/08/2024 2:55 PM CDT Narrative Procedure Note Tom Klein MD - 04/08/2024 3:32 PM CDT PROCEDURE PERFORMED: 1. Left heart catheterization. 2. Ascending aortic angiography. 3. Transcatheter aortic valve replacement OPERATORS: MAULIK Sullivan, Valve and Structural Heart Disease Fellow Tanner Garcia DNP, Valve and Structural Heart Disease NEDRA Ivana Garrido MD, Interventional Top Lift Scourer Tom Klein MD, Valve and Structural Heart Disease InterventionalCardiologist Chino Thomson MD, Cardiothoracic Surgery DESCRIPTION PROCEDURE: The patient was taken to the CV OR hybrid room in the fasting state. Anarea of both groins were prepped and draped in the usual sterile fashion.Next, using ultrasound guidance, the right common femoral artery wereentered percutaneously and a sheath was inserted. Using ultrasoundguidance the right radial artery was entered percutaneously and a 5 Frenchslender sheath was inserted. Next, a 6-Sinhala pigtail was advanced viathe right radial artery sheath under fluoroscopic guidance to the aorticvalve and placed in the non coronary cusp. Next, limited ascending aorticangiography was performed to confirm adequate visualization of all 3coronary cusps in the optimal deployment angle of MACANESE 4 CAU 4. Next, anexchange wire was placed in the sheath in the right femoral artery accessand advanced to the descending aorta. The sheath was removed and 2Perclose ProGlide closure devices were deployed to preclose thearteriotomy site. The patient was then anitcoagulated with IV heparin toachieve an ACT of greater than 250. Next, a 10 Sinhala sheath was insertedover a guidewire in the right common femoral artery and an AL1 catheterwas advanced to aortic valve and the valve successfully with a standard0.35 guide wire. Next a Safari wire, was advanced into the left ventricleover the AL1 catheter. Next a 14 Sinhala eSheath was advanced over theSafari wire into the right common femoral artery. Next an Zamora 26mmSapien S3 Ultra delivery system and valve was advanced in an in linefashion to the descending thoracic aorta. The valve delivery system wasadvanced around the aortic arch and the 26mm Jagdish S3 Ultra valve wasadvanced across the stenotic soboba aortic valve. Next, followingadjustment utilizing a limited ascending aortic angiography, the patient'sleft ventricle was paced (unipolar pacing using the Safari wire and asubcutaneous groung) at 180 beats per minute and the 26mm Jagdish S3 Ultra(nominal + 1) valve was deployed in the usual fashion. Followingdeployment, the delivery system was removed and exchanged for a pigtailcatheter a pigtail over the Safari wire into the left ventricle.Simultaneous pressures confirmed no significant residual stenosis. Nextascending aortography demonstrated no valvular or perivalvularinsufficiency. The patient was then given protamine to reverseanticoagulation. Next the eSheath was removed and the right femoralarteriotomy site was closed utilizing the preclosure sutures successfullywith excellent hemostasis. The left site was closed using a singlePerclose device. Hemostasis of the right radial artery was achieved usinga transradial band. The patient was then transferred out of CV OR hybridroom in stable condition. The patient tolerated the procedure well.There were no complications. Tom Klein MD .................... 04/08/2024 3:33 PM Tom Klein MD CV IMAGING * RBC W/O TYPE & SCREEN (04/08/2024 2:14 PM CDT) QUANTITY 2 04/08/2024 2:1 4 PM CDT [facility] Blood BLOOD SPECIMEN / Unknown 04/08/2024 2:13 PM CDT Tom Klein MD BLOOD BANK [facility] [address] [place] [address], * RED BLOOD CELLS EA UNIT (04/08/2024 2:13 PM CDT) Only the most recent of2 resultswithin the time period is included. CROSSMATCH Compatible Compatible [facility] PRODUCT BLOOD TYPE O Rh Positive [facility] PRODUCT ID NUMBER [id number] [facility] PRODUCT STATUS /Relea sed [facility] PRODUCT DESCRIPTION RBC -1 LR [facility] PRODUCT CODE [id number] [facility] Tom Klein MD BLOOD BANK Performing Organization Address [facility]/ZIP Co de Phone Number [facility] [address] [place] [address], [place] [phone] * TYPE & SCREEN (04/08/2024 12:14 PM CDT) Only the most recent of2 resultswithin the time period is included. ABORH O Rh Positive 04/08/2024 1:50 PM CDT [facility] ANTIBODY SCREEN Negative Negative 04/08/2024 1:50 PM CDT [facility] [employer] [facility] SPECIMEN EXPIRATION DATE/TIME 04/11/24 23:59 04/08/2024 1:50 PM CDT [facility] B[facility]OD [facility] Blood BLOOD SPECIMEN / Unknown Non-Lab Venipuncture / Unknown 04/08/2024 12:14 PM CDT 04/08/2024 12:24 PM CDT Tanner Garcia NP BLOOD BANK [facility] [facility] [address] [place] [address], [place] [phone] * (ABNORMAL) Glucose, Fasting (04/08/2024 12:14 PM CDT) GLUCOSE 102(H) 70 - 99 mg/dL 04/08/2024 12:56 PM CDT [facility] Blood BLOOD SPECIMEN / Unknown Non-Lab Venipuncture / Unknown 04/08/2024 12:14 PM CDT 04/08/2024 12:24 PM CDT Tanner Garcia NP CHEMISTRY Performing Organization Address [facility]/ZIP Co de Phone Number [facility] [address] [place] [address], [place] * MISSING PERSONS INVESTIGATOR QUESTION TEST (04/06/2024 10:38 AM CDT) QABT Question Yes 04/06/2024 11:02 AM CDT [facility] Blood BLOOD SPECIMEN / Unknown Venipuncture / Unknown 04/06/2024 10:38 AM CDT 04/06/2024 10:38 AM CDT Tom Klein MD BLOOD BANK Performing Organization Address [facility] Co de Phone Number [facility] [address] [place] [address], [place] [phone] * ALBUMIN (04/06/2024 10:38 AM CDT) ALBUMIN 4.3 4.0 - 4.9 g/dL 04/06/2024 11:50 AM CDT [facility] Blood BLOOD SPECIMEN / Unknown Venipuncture / Unknown 04/06/2024 10:38 AM CDT 04/06/2024 10:38 AM CDT Tom Klein MD CHEMISTRY Performing Organization Address [facility] Co de Phone Number [facility] [address] [place], [place] [id number], [place] * CTA CHEST ABD PELVIS TAVR - DUAL READ (04/03/2024 1:42 PM CDT) Only the most recent of2 resultswithin the time period is included. Anatomical Region Laterality Modality CHEST, Abdomen, Pelvis Computed Tomography Impressions 04/04/2024 11:27 AM CDT 1. No acute nonvascular findings in the chest, abdomen, and pelvis. 2. 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 3. Multiple subcapsular arterial enhancing hepatic lesions are incompletely characterized but may represent benign entities such as intrahepatic vascular shunting. Consider further characterization with contrast-enhanced multiphase CT/MRI of the abdomen. 4. Please refer to separately dictated report for evaluation of cardiovascular structures. Please note that all CT scans at this facility use dose modulation, iterative reconstruction and/or weight-based dosing when appropriate to reduce radiation dose to as low as reasonably achievable. ?? Dictated by Ming Castle MD @ Apr 02 2024 3:35PM (Electronic Signature) CRL:jj Narrative 04/04/2024 11:27 AM CDT Images from the original result were not included. ADDENDUM ?Flako Newsome MD 03/31/2024 ??5:05 PM ADDENDUM: DATE CORRECTION Please note study date was 03/03/2024. Original report entered 07/23/23 in error. Flako Newsome MD 03/31/2024 RESULT ? STUDY: CTA CHEST, ABDOMEN, AND PELVIS TAVR [...] Angles: Optimal deployment projection (balloon expandable device): MACANESE 04??, CAU 04?? Optimal deployment projections (self [...] PATIENT: Results are automatically released to your [employer] account once available, in compliance with federal regulations. ?? This means that you may see your results before your provider has had a chance to review them. ??Please allow 2-3 business days for your provider to comment on the results. Ozzie Rodríguez MD Pager # [phone] [facility] 07/23/2023 For Patients: As a result of the 21st Century Cures Act, medical imaging exams and procedure reports are released immediately into your electronic medical record. ??You may view this report before your referring provider. ?? If you have questions, please contact your health care provider. OVER-READ ??OVER-READ ??OVER-READ OVER-READ: DETAILED RADIOLOGY EXTRACARDIAC OVER-READ OF CARDIAC CT 03/03/2024 TECHNIQUE: ??Please see cardiology report for technical information. ??100 cc Omnipaque-350 intravenous contrast. ?? This exam is being performed in conjunction with the services provided by the [facility] ([facility]). CLINICAL HISTORY: ??Aortic stenosis. ??Cardiac over-read. FINDINGS: ??Chest: Thyroid is unremarkable. No significant lymphadenopathy in the chest benign 1.2 cm calcified granuloma in the right lower lobe. No focal airspace opacities or pleural effusions. Bibasilar dependent atelectatic changes. Bilateral calcified pleural plaques. Abdomen/Pelvis: Liver: Non cirrhotic morphology. Multiple subcapsular arterial enhancing lesions measuring up to 1.5 CM in the anterior left hepatic lobe are incompletely characterized but may represent benign entity such as intrahepatic vascular shunts. Gallbladder: Unremarkable. Spleen: Unremarkable. Adrenal glands: Unremarkable. Kidneys: Enhance symmetrically without hydronephrosis. Bilateral cortical cysts. Pancreas: Unremarkable. Lymph nodes: No retroperitoneal, mesenteric, inguinal, or pelvic adenopathy by CT criteria. Bowel: No bowel obstruction. Normal appendix in the right lower quadrant. Colonic diverticulosis. Urinary bladder: Limited evaluation due to underdistention. No gross pathology. Reproductive structures: Unremarkable for patient`s age. No abdominal/pelvis ascites or free intraperitoneal air. Musculoskeletal: Visualized osseous structures demonstrate diffuse degenerative changes most pronounced in the lumbosacral spine. García Samanieog MD CT * CVL CORONARY ANGIOGRAM POSS PCI (03/30/2024 2:21 PM CDT) Anatomical Region Laterality Modality X-Ray Angiograph y, X-Ray Angiography 03/30/2024 2:21 PM CDT Narrative Transcriptions Akilah Silvestre MD - 04/01/2024 9:52 AM CDT [facility] Cardiac Catheterization Report Name: CUATE REGALADO Event Date: 03/30/2024 14:21 Excellian ID #: [id number] SABINO #: [id number] Patient Class: Outpatient Diagnostic Physician: AKILAH SILVESTRE [facility] Referring Physician: Cris Malik PA-C Primary Care Physician: CRIS MALIK Date: 1940 Gender: Male Age: 83 Summary/Conclusions PRESENTATION / INDICATIONS * Pre TAVR coronary angiogram; CTA suggesting possible severe CX lesion VASCULAR ACCESS * Using ultrasound guidance and a percutaneous technique, the right radialartery was accessed. Ultrasound was used to confirm vessel patency,localizing needle into the lumen of the vessel. An image was saved for themedical record. DIAGNOSTIC - CORONARY * Left dominant coronary artery system DIAGNOSTIC SUMMARY ? The LMCA is free of significant disease. ? The LAD has mild luminal irregularities. ? The Circumflex is dominant. ? Two 50-60% calcified, eccentric stenosis in the Proximal Circumflex RECOMMENDATIONS & PLAN * Medical Rx for CAD, discussed with Dr Klein * Consider aortic valve replacement TAVR Consent & Jefferson Protocol The risks, benefits, and alternatives of the procedure were discussed withthe patient and written informed consent was obtained. Jefferson protocol was followed. TIME OUT conducted just prior tostarting procedure confirmed patient identity, site/side, procedure,patient position, and availability of correct equipment and implants (ifapplicable). Staff Name Title AKILAH SILVESTRE Diagnostic Traveling Electrician Juan Miguel Le RN Nurse Len Carson CVT Monitor Jose Luis Kohli CVT Scrub Procedures ? Ultrasound Guided Vascular Access ? Coronary Angiogram Diagnostic Findings * Left Main Coronary Artery ? The LMCA is free of significant disease. * Left Anterior Descending ? The LAD has mild luminal irregularities. * Circumflex ? The Circumflex is dominant. ? 50% calcified stenosis in the Proximal Circumflex. Lesion Information Lesion # Vessel Segment Lesion Length Lesion Details Proximal Circumflex Hemodynamics State: Baseline Pressures (mmHg) Site Systolic Diastolic End Diastolic A Wave V Wave Mean AO 113 53 64 Procedure Details Estimated Blood Loss: < 30 ml Specimen Collected: None Level of Sedation Achieved: Moderate Procedure Start: 14:21 Procedure End: 14:32 Procedure Time: 11 min Fluoroscopy Time: 1.5 min Cumulative Air Kerma: 97 mGy DAP: 463 uGy/M2 Contrast: Omnipaque (low-osmolar), 50 ml Physiologic Data Weight: 63.5 kg BSA: 1.72 m2 Vascular Access Time Access Sheath Size 14:22 Right Radial Artery, sheath inserted Medications Ordered and Administered Start Time Stop Time Medication Dose Units Route Ordered By Given By 14:16 Fentanyl 50 mcg IV Akilah Silvestre Shawn RN 14:16 Versed 1 mg IV Akilah Silvestre Shawn RN 14:21 1% Lidocaine 0.5 ml Subcut Akilah Silvestre Mario 14:23 Nitroglycerin 100 mcg IA Akilah Silvestre Mario 14:24 O2 2 l per min Nasal cannula Akilah Silvestre Shawn RN 14:25 Heparin 3000 units IV Akilah Silvestre Shawn RN 14:25 Fentanyl 25 mcg IV Akilah Silvestre Mario 14:25 Versed 0.5 mg IV Akilah Silvestre Shawn RN 14:31 Versed 0.5 mg IV Akilah Silvestre Shawn RN 14:32 Fentanyl 25 mcg IV Akilah Silvestre Shawn RN I personally monitored the patient?s conscious sedation during theprocedure. Conscious sedation starts with the first sedation medication dose ofFentanyl or Versed and ends when the procedure is completed, the patientis stable for recovery status, and the physician or other qualified healthcare professional providing the sedation ends personal [id number] time with the patient. The medications listed above were verbally ordered by me and read back tome as documented above. Refer to the procedure log report for additional case details. electronically signed on 04/01/2024 9:52:33 AM with status of Final Akilah Silvestre MD [facility] [address] [place] [address] (p) (f) Provider Referring CV IMAGING * (ABNORMAL) CREATININE,ISTAT (03/03/2024 7:58 AM CDT) Pathologist [facility] CREATININE, POCT 1.40(H) 0.57 - 1.11 mg/dL 03/03/2024 12:41 PM CDT [facility] Comment:Caution: Patients ta josise Hydroxyurea have falsely increased iStat Creatinine results. Verify creatinine results ordering a Creatinine (23568.2) eGFR 50(L) >90 mL/min/1.7 3m2 03/03/2024 12:41 PM CDT [facility] [employer] [employer] Comment:As of 2022, eG FR [...] Tom Klein MD CHEMISTRY Performing Organization Address [facility]/ZIP Co de Phone Number [facility] [address] [address], [place] * SODIUM,ISTAT (03/03/2024 7:51 AM CDT) Pathologist [facility] SODIUM, POCT 139 135 - 145 mmol/L 03/03/2024 12:41 PM CDT [facility] Blood BLOOD SPECIMEN / Unknown 03/03/2024 7:51 AM CDT 03/03/2024 12:41 PM CDT Tom Klein MD LABORATORY Performing Organization Address [facility] Co de Phone Number [facility] [address] [place] [address], [place] * (ABNORMAL) HEMATOCRIT/HGB,ISTAT (03/03/2024 7:51 AM CDT) [facility] HEMATOCRIT, POCT 39.0 37.0 - 53.0 % 03/03/2024 12:41 PM CDT [facility] HEMOGLOBIN, POCT 13.3(L) 13.5 - 17.5 g/dL 03/03/2024 12:41 PM CDT [facility] Blood BLOOD SPECIMEN / Unknown 03/03/2024 7:51 AM CDT 03/03/2024 12:41 PM CDT Tom Klein MD CHEMISTRY Performing Organization Address [facility] Co de Phone Number [facility] [address] [address], [place] * ECHO TTE COMPLETE WO CONTRAST (02/13/2024 11:25 AM CDT) Pathologist [facility] AORTIC VALVE MEAN PG 38 mmHg EJECTION FRACTION 66 % PEAK TR VELOCITY 2.8 m/s LVEDD 4.3 cm Anatomical Region Laterality Modality Ultrasound 02/13/2024 10:4 6 AM CDT Narrative 02/13/2024 1:00 PM CDT ECHOCARDIOGRAM CUATE REGALADO ? Accession#: ?? [id number] : ?1940 83 years Study Date: ?? 02/13/2024 10:46:42 AM Gender: M ?BP: ? 0/0 mmHg Height: 168.00 cm ?BSA: ?1.75 m? ? ? Weight: 66.00 kg ? Tech: ? RMB ? Referring MD: GARCÍA SAMANIEGO Site: ? [facility] Kerline Hameed Reading Location: [facility] Patient Location: Procedure: 2D, Color Doppler and [...] . This study was interpreted by an [facility] accredited facility. ??Final ?? Procedure Note Ingrid Simons MD - 02/13/2024 ECHOCARDIOGRAM CUATE REGALADO : 1940 83 years Study Date: 02/13/2024 10:46:42 AM Gender: M BP: 0/0 mmHg Height: 168.00 cm BSA: 1.75 m? ? ? Weight: 66.00 kg Tech: [facility] Referring MD: GARCÍA SAMANIEGO Site: [facility] Kerline Hameed Reading Location: [facility] Patient Location: Procedure: 2D, Color Doppler and [...] . This study was interpreted by an [facility] accredited facility. Final García Samaniego MD ECHO ORD from Last 3 Months Advance Directives * Full Code (Latest Code Status on File) Date Activated Date Inactivated Comments 04/08/2024 3:40 PM 04/09/2024 1:20 PM Question Answer Comments Code Status Discussion: Reviewed Preferences * Full Code Date Activated Date Inactivated Comments 03/30/2024 1:07 PM 03/30/2024 8:47 PM Question Answer Comments Code Status Discussion: Reviewed Preferences * Full Code Date Activated Date Inactivated Comments 03/30/2024 10:40 AM 03/30/2024 1:07 PM Question Answer Comments Code Status Discussion: Unable to Assess Preferences, Provider to review later Care Teams Cell Inspector Relationship Specialty Start Date End Date Cris Malik PA-C [address] [place] [address] PCP - General Physician Intensive Care Ambulance Paramedic 03/03/24
--- OUTSIDE RECORDS SUMMARY | 2024-04-15 06:59 | XMS_ITS | Continuity of Care Document ---
Author Name Unknown Organization [facility] Address [address] [place] [address] Phone Care Team Providers Care Whey Department Operator Name Role Phone MIROSLAVA OD, MARCEL Unavailable Unavailable Advance Directives Directive Yes / No Effective Date File Name No Information Encounters Encounter Description Practice Location Reason(s) For Visit Diagnoses Date Provider Providers Copied on Encounter [facility], [address], [place], [place], [id number], [place] tel:[phone] [facility] No Information [facility], [address], [place], [address], [place]. tel:[phone] Referring Provider: Sumit Verdugo, [facility] [place], [address]. tel:[phone] Family History Family Member Type Diagnosis Age At Onset No Information Payers Payer name Insurance type Covered democrat ID Authoriza tion(s) Medicare Part B [place] [id number] [employer] [id number] Social History Type Description Quantity Date Captured [...]
--- OUTSIDE RECORDS SUMMARY | 2024-04-15 06:59 | XMS_ITS ---
Author Name Unknown Organization Unknown Patient Care team information Name Category Status Period Participants - - Proposed period not known -
--- OUTSIDE RECORDS SUMMARY | 2024-04-15 06:59 | XMS_ITS | Encounter Summary ---
Author Name Unknown Organization [facility] Address [address] [place] [address] Care Team Providers Care Slide Machine Tender Name Role Phone Elsewhere, Pcp Primary Care Provider Unavailabl e Reason for Referral * Outpatient (Routine) - Closed Specialty Diagnoses / Procedures Referred By Contac t Referred To Contact Urology Diagnoses Benign Prostatic Hyperplasia Without Obstruction Kevin Wheeler M.D. [address] [address] [facility] Referral ID Status Reason Start Date Expiration Date Visits Re quested Visits Authorized [id number] Closed 02/11/2019 02/11/2020 1 1 Encounter Details Date Type Department Care Team (Late st Contact Info) Description 02/11/2019 [facility] [address] [place] [address] Kevin Wheeler M.D. [address] [address] Benign Prostatic Hyperplasia Without Obstruction [...] Pending 11/13/2021 11/13/2021 11/14/2021 3 :08 AM WINTER INTERN documented as of this encounter Care Teams Slide Machine Tender Relationship Specialty Start Date End Date Elsewhere, Pcp PCP - General Internal Medicine 12/12/22 documented as of this encounter
== END 2024-04-14 13:06 | disposition home or self-care (01) ==
LOC: NFLDREF 04-15 06:57
PROVIDERS: PCP Physician Assistant Medical; Referring Provider Physician Assistant Medical; Visit Provider Physician Assistant Medical
DX: Z09 Encounter for follow-up examination after completed treatment for conditions other than malignant neoplasm (principal)
CPT/HCPCS: 80048